=== PATIENT | female | born 1955 | race Caucasian/White ===

== ENCOUNTER 2020-06-13 13:24 | Outpatient (CLI) | payer OTHER, SELFPAY ==
[2020-06-13 13:50] LABS: Basophils Percent Auto 0.4 % (0.2-1.2); Eosinophils Absolute Auto 0.3 K/mm3 (0-0.3); Eosinophils Percent Auto 4.5 % (0-4.4); Hematocrit 41.7 % (37.0-47.0); Hemoglobin 13.5 g/dL (12.0-15.0); Immature Granulocyte Absolute 0.01 K/mm3 (0.00-0.031); Immature Granulocyte Percent A 0.1 % (0-0.5); Lymphocytes Absolute Auto 1.51 K/mm3 (0.9-3.2); Mean Corpuscular HGB Conc 32.4 g/dl (32-36); Mean Corpuscular Hemoglobin 29.9 pg (26-34); Mean Corpuscular Volume 92.5 fl (80-100); Mean Platelet Volume 11.6 fl (7.4-10.4); Monocytes Absolute Auto 0.4 K/mm3 (0.1-0.6); Monocytes Percent Auto 6.1 % (2.6-8.5); Neutrophils Absolute Auto 4.9 K/mm3 (1.3-6.7); Neutrophils Percent Auto 67.9 % (45.5-73.1); Platelet Count Result 199 k/mm3 (150-375); Red Blood Count 4.51 M/mm3 (4.2-5.4); Red Cell Distribution Width 13.8 % (11.5-14.5); White Blood Count 7.2 K/mm3 (4.5-10.0)
[2020-06-13 15:04] LABS: Iron 68 ug/dL (37-170)
[2020-06-13 15:14] LABS: Percent Iron Saturation 26 % (20-50)
== END 2020-06-13 13:25 | disposition home or self-care (01) ==
PROVIDERS: PCP Family Medicine; Visit Provider Internal Medicine Hematology & Oncology
DX: D50.9 Iron deficiency anemia, unspecified (principal)
CPT/HCPCS: 36415; 82728; 83540; 83550; 85025

== ENCOUNTER 2020-10-10 09:47 | Outpatient (NON) | payer MEDICARE, OTHER, SELFPAY ==
[2020-10-10 23:36] LABS: SARS-CoV-2 RNA PCR Positive
== END 2020-10-10 09:48 ==
PROVIDERS: PCP Family Medicine; Visit Provider Physician Assistant
DX: U07.1 COVID-19 (principal)
CPT/HCPCS: 87635; C9803; U0003

== ENCOUNTER 2021-01-07 12:52 | Emergency (ER) | payer OTHER, SELFPAY ==
[2021-01-07 13:12] VITALS: BP 145/56; PULSE 82; RESP 16; TEMP 37.3; O2SAT 99
--- NOTE | 2021-01-07 13:32 | ED.NAVMDI ---
HPI - Nausea/Vomiting/Diarrhea General Chief complaint: Nausea/Vomiting/Diarrhea Stated complaint: vomiting/diaherra/abd pain Time Seen by Provider: 01/07/21 13:14 Source: patient and RN notes reviewed Mode of arrival: ambulatory Limitations: no limitations History of Present Illness HPI Narrative: Patient presents today complaining of nausea, vomiting, and diarrhea with upper abdominal pain that started yesterday. States her last vomiting episode was last night, but she has not tried to eat anything since that time. She has been able to keep down half a bottle of water today so far. Denies any blood in the emesis. States her stools were dark in color and loose yesterday, but today she describes them as black and tarry. Her last episode was this morning prior to arrival. States her abdominal pain has been constant and she cannot get comfortable. She currently rates her abdominal pain 9/10 and has been taking ibuprofen without relief. History of type 2 diabetes, chronic kidney disease, anemia. She has been taking an iron supplement for the past 3-1/2 years and states it has never caused her to have black stools. Blood sugar this morning was 157. Patient recently finished a course of Macrobid for UTI. MD elicited complaint: nausea, vomiting, diarrhea and abdominal pain Related Data Home Medications Medication Instructions Recorded Confirmed ferrous sulfate 325 mg (65 mg 325 mg PO BID 10/26/19 01/01/21 iron) tablet ibuprofen 200 mg tablet 200 mg PO Q6H PRN 10/26/19 01/01/21 Allergies Allergy/AdvReac Type Severity Reaction Status Date / Time ciprofloxacin Allergy Unknown Unknown Verified 01/01/21 14:52 Penicillins Allergy Unknown Hives Verified 01/01/21 14:52 Review of Systems Review of Systems: Narrative: CONSTITUTIONAL: Denies body aches, fever, chills, or sweats.+ Fatigue EYES: Denies visual changes, redness, or discharge. ENT: Denies rhinorrhea, congestion, sore throat, or otalgia. CARDIOVASCULAR: Denies chest pain, palpitations, or edema. RESPIRATORY: Denies cough or dyspnea. GASTROINTESTINAL: + Nausea, vomiting, diarrhea, abdominal pain GENITOURINARY: Denies dysuria or hematuria. SKIN: Denies rash, itching, or wounds. MUSCULOSKELETAL: Denies back pain, joint pain, or myalgia. NEUROLOGIC: Denies headache, numbness, tingling, or weakness. PSYCH: Denies depression or anxiety. [facility] Past Medical History Medical History (Updated 01/07/21 @ 13:35 by Kati Lemus, [facility], ) Chronic thumb pain, bilateral CKD (chronic kidney disease), stage III Foot callus Incontinence of feces with fecal urgency Urinary incontinence Wellness examination Family History Family History Mother Diabetes mellitus Family history of primary malignant neoplasm of liver Father Family history of coronary artery disease Sibling Family history of malignant neoplasm of breast in first degree relative Social History Social History (Updated 01/01/21 @ 14:52 by Lorena Blanco) Smoking status: Never smoker Second hand tobacco smoke exposure: No Alcohol intake: never Substance use: never Substance use type: does not use Gender identity (if verbalized by the patient): Female Comments At time of signature, I have reviewed and agree with nursing past medical, surgical, social and family history unless otherwise noted. Please see nursing chart for further information. There is no relevant family history pertinent to the presenting complaint Exam Narrative: Exam Narrative: GENERAL: Well-appearing, well-nourished, and in no acute distress. HEAD: Normocephalic, atraumatic. EYES: EOMI. No redness or drainage. Conjunctivae normal. ENT: Mucous membranes pink and moist. NECK: Normal AROM. Supple. No lymphadenopathy. CHEST: No respiratory distress. Clear to auscultation. HEART: Regular rate and rhythm. No murmur appreciated. Normal peripheral pulses. ABDO
== END 2021-01-07 13:42 | disposition short-term general hospital (02) ==
PROVIDERS: Emergency Provider Nurse Practitioner; PCP Family Medicine
DX: R10.11 Right upper quadrant pain (principal); R11.2 Nausea with vomiting, unspecified; R19.7 Diarrhea, unspecified; I12.9 Hypertensive chronic kidney disease with stage 1 through stage 4 chronic kidney disease, or unspecified chronic kidney disease; E11.22 Type 2 diabetes mellitus with diabetic chronic kidney disease; N18.30 Chronic kidney disease, stage 3 unspecified; E78.00 Pure hypercholesterolemia, unspecified; K21.9 Gastro-esophageal reflux disease without esophagitis
CPT/HCPCS: 99212; G0463

== ENCOUNTER 2021-01-07 13:52 | Inpatient (IN) | payer OTHER, SELFPAY ==
[2021-01-07] VITALS (9 sets, daily range): BP systolic 133–156; BP diastolic 54–68; PULSE 88–110; RESP 20; TEMP 36.7–36.8; O2SAT 92–98; BMI 38.0
--- NOTE | ~2021-01-07 | US_ITS ---
EXAMINATION: US right upper quadrant DATE: 01/07/2021 15:38 INDICATION: Right upper quadrant abdominal pain. TECHNIQUE: Multiple grayscale and Doppler ultrasound images of the abdomen were obtained. COMPARISON: CT abdomen and pelvis 10/22/2017 FINDINGS: The visualized portions of the head and body of the pancreas are normal. The liver is aliya l without focal lesion. There is normal flow in main portal vein. The gallbladder is distended and co ntains gallstones. Gallbladder wall thickening is noted. There was a positive sonographic Al[place]a sign . The common duct is mildly dilated to 8 mm. IMPRESSION: 1. Acute cholecystitis. 2. Mildly dilated common duct. Reviewed, dictated and finalized at location A. [employer] POLICY ANALYST
[2021-01-07 14:18] LABS: Basophils Percent Auto 0.2 % (0.2-1.2); Hematocrit 45.9 % (37.0-47.0); Hemoglobin 15.1 g/dL (12.0-15.0); Immature Granulocyte Absolute 0.08 K/mm3 (0.00-0.031); Immature Granulocyte Percent A 0.4 % (0-0.5); Lymphocytes Absolute Auto 0.74 K/mm3 (0.9-3.2); Lymphocytes Percent Auto 4.1 % (18.3-44.2); Mean Corpuscular HGB Conc 32.9 g/dl (32-36); Mean Corpuscular Hemoglobin 29.7 pg (26-34); Mean Corpuscular Volume 90.4 fl (80-100); Mean Platelet Volume 11.3 fl (7.4-10.4); Monocytes Absolute Auto 1.1 K/mm3 (0.1-0.6); Monocytes Percent Auto 5.9 % (2.6-8.5); Neutrophils Absolute Auto 16.3 K/mm3 (1.3-6.7); Neutrophils Percent Auto 89.4 % (45.5-73.1); Platelet Count Result 209 k/mm3 (150-375); Red Blood Count 5.08 M/mm3 (4.2-5.4); Red Cell Distribution Width 14.2 % (11.5-14.5); White Blood Count 18.2 K/mm3 (4.5-10.0)
[2021-01-07 14:28] LABS: Partial Thromboplastin Time 34.4 SECONDS (22.3-36.8); Prothrombin Time 13.7 Seconds (11.1-14.7)
[2021-01-07 14:29] LABS: Alanine Aminotransferase 18 U/L (4-35); Albumin Level 4.3 g/dL (3.5-5.1); Alkaline Phosphatase 116 U/L (38-126); Anion Gap 10 mmol/L (8-16); Aspartate Amino Transferase 24 U/L (14-36); Bilirubin,Total 1.8 mg/dL (0.2-1.3); Blood Urea Nitrogen 17 mg/dL (7-17); Calcium 10.2 mg/dL (8.4-10.2); Carbon Dioxide 22 mmol/L (22-30); Chloride 105 mmol/L (98-107); Estimated CRCL calculation 77 ml/min; Estimated Glomerular Filt Rate > 60; Glucose 242 mg/dL (65-105); Potassium 4.2 mmol/L (3.4-5.0); Sodium 137 mmol/L (137-145)
[2021-01-07 14:31] LABS: Add Urine Microscopic? YES; Appearance Urine Clear (Clear); Bacteria Urine Trace /hpf; Bilirubin Urine Negative (Negative); Blood Urine 2+ (Negative); Color Urine Yellow (Yellow); Glucose Urine UA 1+ mg/dL (Negative); Ketones Urine Trace mg/dL (Negative); Leukocyte Esterase Ur Negative LEU/UL (Negative); Mucus Urine Heavy /lpf; Nitrate Urine Negative (Negative); Protein Urine 3+ mg/dL (Negative); Specific Grav Ur 1.026 (1.001-1.035); Squamous Epithelial Cell Urine Moderate /hpf (Few); Urobilinogen Urine Negative mg/dL (<2.0); WBC Urine 0-3 /hpf
--- NOTE | 2021-01-07 15:13 | ED.ABDPAIN ---
HPI - Abdominal Pain General Chief Complaint: Abdominal Pain Stated Complaint: bloody stool Time Seen by Provider: 01/07/21 14:54 Source: patient Limitations: no limitations History of Present Illness HPI narrative: 65-year-old female History of diabetes Complains of nausea vomiting and upper abdominal pain that started yesterday She has not had any diarrhea but thought that her stools might have been tarry appearing She went to urgent care and based on that they sent her over here No fever and blood sugars have been okay No urinary symptoms History of C-sections but no other abdominal operations Related Data Home Medications Medication Instructions Recorded Confirmed ferrous sulfate 325 mg (65 mg 325 mg PO BID 10/26/19 01/01/21 iron) tablet ibuprofen 200 mg tablet 200 mg PO Q6H PRN 10/26/19 01/01/21 Allergies Allergy/AdvReac Type Severity Reaction Status Date / Time ciprofloxacin Allergy Unknown Unknown Verified 01/07/21 14:03 Penicillins Allergy Unknown Hives Verified 01/07/21 14:03 Review of Systems Review of Systems: All systems reviewed & are unremarkable except as noted in HPI and below Constitutional: Constitutional: Denies chills, Denies fatigue, Denies fever(s), Denies headache(s) and Denies weakness Eyes: Eyes: Reports no additional eye complaints and Denies change in vision ENT: Denies headache(s), Denies epistaxis, Denies nasal congestion and Denies sore throat Cardiovascular: Cardiovascular: Denies chest pain, Denies leg edema, Denies palpitations and Denies dyspnea Respiratory: Respiratory: Denies cough, Denies dyspnea and Denies wheezing Gastrointestinal: Gastrointestinal: Reports abdominal pain, Denies bloating, Denies constipation, Denies diarrhea, Reports nausea and Reports vomiting Genitourinary: Genitourinary: Denies hematuria, Denies urinary frequency and Denies dysuria Musculoskeletal: Musculoskeletal: Denies deformity, Denies arthralgias, Denies joint swelling, Denies muscle weakness and Denies numbness Integumentary/Breasts: Skin/Breast: Denies rash and Denies wounds Neurologic: Denies headache(s), Denies focal weakness, Denies numbness and Denies weakness Psychiatric: Psychiatric: Reports no additional psychiatric complaints Endocrine: Endocrine: Denies fatigue and Denies palpitations Hematologic/Lymphatic: Hematologic/Lymphatic: Denies easy bleeding and Denies easy bruising Allergic/Immunologic: Allergic/Immunologic: Denies wheezing PMFSH Past Medical History Medical History (Updated 01/07/21 @ 16:56 by Adryan Winslow MD) Chronic thumb pain, bilateral CKD (chronic kidney disease), stage III Foot callus Incontinence of feces with fecal urgency Urinary incontinence Wellness examination Family History Family History Mother Diabetes mellitus Family history of primary malignant neoplasm of liver Father Family history of coronary artery disease Sibling Family history of malignant neoplasm of breast in first degree relative Social History Social History (Updated 01/01/21 @ 14:52 by Lorena Blanco) Smoking status: Never smoker Second hand tobacco smoke exposure: No Alcohol intake: never Substance use: never Substance use type: does not use Gender identity (if verbalized by the patient): Female Exam Const: General: well developed, alert and awake Nutritional Appearance: well nourished and obese Orientation/consciousness: patient oriented x3 (alert) Limitations: no limitations HENMT: Head: normocephalic and atraumatic Ears: external ears normal General nose exam: No nasal discharge present and no epistaxis Face and sinus: face symmetric Eyes: Conjunctivae: conjunctivae normal Sclera: sclerae normal EOM: EOMs intact bilaterally Neck: Neck: normal visual inspection, supple and no JVD Chest: Chest palpation & inspection: deferred Resp: Effort & Inspection: aliya
[2021-01-07 15:32] LABS: Lipase 34 U/L (23-300)
[2021-01-07] MEDS: LACTATED RINGERS 1,000 ML 150 ML IV CONT (16:15)
[2021-01-07] MEDS: METOCLOPRAMIDE HCL INJ 10 MG/2 ML VIAL IV PUSH (16:15)
[2021-01-07] MEDS: metroNIDAZOLE 500 MG/ISO 100ML 500 MG/100 ML BAG 100 MG IVPB ×2 (16:16→22:50)
--- NOTE | 2021-01-07 18:40 | ADMGEN ---
This patient, Yoana Franco, was admitted to 3 Med Surg Room 319-01 @ 1840. Patient/family oriented to hospital policies and general routines including ID bracelet, bed and alarms, visiting hours, pain management, procedures, bathroom and other care routines, personal items, smoking policy, room service/diet, and visiting hours. Information on how to activate the Rapid Response Team has been discussed. Patient/Family are encouraged to report perceived risks to care and to ask questions if they do not understand what they are told or what they should do.
[2021-01-07] MEDS: LACTATED RINGERS 1,000 ML 125 ML IV CONT (20:57)
[2021-01-07] MEDS: FAMOTIDINE 20 MG/2 ML VIAL IV PUSH (21:08)
[2021-01-07 22:20] LABS: Hemoglobin A1C 7.2 % (<5.7)
[2021-01-07 22:21] LABS: Glucose Point of Care 207 (65-105)
[2021-01-07] MEDS: INSULIN GLARGINE (*BKC) 100 UNITS/ML 14 UNITS SUB-Q (22:46)
[2021-01-08] VITALS (19 sets, daily range): BP systolic 144–161; BP diastolic 52–69; PULSE 75–100; RESP 13–18; TEMP 36.2–37.1; O2SAT 88–96
--- NOTE | 2021-01-08 00:53 | PM.IMHP ---
H&P: HPI History of Present Illness Date/Time: 01/08/21 00:53 Chief Complaint: RUQ abd pain for 1 day Narrative: This is a pleasant 65 year old Diabetic female who presented to the hospital yesterday with a complaint of severe RUQ abdominal pain of 1 day duration. Associated symptoms included nausea and vomiting. She rossi no't believe that she had any fevers or chills. Her aunt of an inflammed gallbladder around her age so she was worried and came to the hospital for evaluation. She also reported dark stools. Rectal exam was performed in the ER and was negative for occult blood. RUQ ultrasound was obtained which demonstrated acute cholecystitis. General Surgery was consulted by ER provider and asked that we admit the patient to the hospital for them. The patient denies any other symptoms such as chest pain, shortness of breath, cough, dysuria, hematuria, or rectal bleeding. The patient has been treated with IV fluids and IV antibiotics. no other complaints. Review of Systems Review of Systems: All systems reviewed & are unremarkable except as noted in HPI and below PMFSH Past Medical History Medical History Chronic thumb pain, bilateral CKD (chronic kidney disease), stage III Diabetes mellitus Foot callus Incontinence of feces with fecal urgency Urinary incontinence Wellness examination Surgical History Surgical History (Updated 01/08/21 @ 01:05 by Javier Choi MD) History of section, classical Family History Family History Mother Family history of primary malignant neoplasm of liver Diabetes mellitus Father Family history of coronary artery disease Malignant neoplasm of prostate Sibling Family history of malignant neoplasm of breast in first degree relative Social History Social History Smoking status: Never smoker Second hand tobacco smoke exposure: No Alcohol intake: never Substance use: never Substance use type: does not use Gender identity (if verbalized by the patient): Female Spiritual care concerns: No Meds Home Medications and Allergies Home Medications Medication Instructions Recorded Confirmed Type ferrous sulfate 325 mg (65 mg 325 mg PO HS 10/26/19 01/07/21 History iron) tablet dicyclomine 10 mg capsule 10 mg PO BID #30 cap 11/05/19 01/07/21 Rx blood sugar diagnostic #300 each 12/30/19 01/07/21 Rx lancets 28 gauge #300 each 12/30/19 01/07/21 Rx allopurinol 300 mg tablet 300 mg PO DAILY #90 tablet 11/21/20 01/07/21 Rx amlodipine 10 mg tablet 10 mg PO DAILY #90 tablet 11/21/20 01/07/21 Rx losartan 100 mg tablet 100 mg PO DAILY #90 tablet 11/21/20 01/07/21 Rx metoprolol succinate 50 mg 50 mg PO DAILY #90 tablet 11/21/20 01/07/21 Rx tablet,extended release 24 hr omeprazole 20 mg capsule,delayed 20 mg PO DAILY #90 cap 11/21/20 01/07/21 Rx release pen needle, diabetic 31 gauge x #100 each 11/21/20 01/07/21 Rx 5/16 sertraline 50 mg tablet 50 mg PO DAILY #90 tablet 11/21/20 01/07/21 Rx sitagliptin 100 mg tablet 100 mg PO DAILY #90 tablet 11/21/20 01/07/21 Rx valacyclovir 1 gram tablet 2,000 mg PO Q12H PRN #28 tablet 11/21/20 01/07/21 Rx metformin 500 mg tablet 500 mg PO BID #180 tablet 12/11/20 01/07/21 Rx ascorbic acid (vitamin C) 100 mg PO DAILY 01/07/21 01/07/21 History ferrous sulfate [Iron (ferrous 650 mg PO DAILY 01/07/21 01/07/21 History sulfate)] glucosamine sulfate [Glucosamine] 500 mg PO BID 01/07/21 01/07/21 History insulin glargine [Lantus Solostar 28 unit SUB-Q DAILY 01/07/21 01/07/21 History U-100 Insulin] simvastatin 20 mg PO HS 01/07/21 01/07/21 History vitamin B complex [B 1 tablet PO DAILY 01/07/21 01/07/21 History Complex-Vitamin B12] Allergies Allergy/AdvReac Type Severity Reaction Status Date / Time ciprofloxacin Allergy Unknown Unknown Verified 01/07/21 19:2
[2021-01-08] MEDS: metroNIDAZOLE 500 MG/ISO 100ML 500 MG/100 ML BAG 100 MG IVPB ×3 (05:52→20:45)
[2021-01-08] MEDS: INSULIN ASPART (*BKC) 100 UNITS/ML SUB-Q ×3 (05:55→17:20)
[2021-01-08 06:10] LABS: Basophils Percent Auto 0.2 % (0.2-1.2); Eosinophils Absolute Auto 0.3 K/mm3 (0-0.3); Eosinophils Percent Auto 1.7 % (0-4.4); Hematocrit 40.9 % (37.0-47.0); Hemoglobin 13.7 g/dL (12.0-15.0); Immature Granulocyte Absolute 0.13 K/mm3 (0.00-0.031); Immature Granulocyte Percent A 0.7 % (0-0.5); Lymphocytes Absolute Auto 1.08 K/mm3 (0.9-3.2); Lymphocytes Percent Auto 5.8 % (18.3-44.2); Mean Corpuscular HGB Conc 33.5 g/dl (32-36); Mean Corpuscular Hemoglobin 30.2 pg (26-34); Mean Corpuscular Volume 90.1 fl (80-100); Mean Platelet Volume 11.7 fl (7.4-10.4); Monocytes Absolute Auto 1.5 K/mm3 (0.1-0.6); Monocytes Percent Auto 7.8 % (2.6-8.5); Neutrophils Absolute Auto 15.7 K/mm3 (1.3-6.7); Neutrophils Percent Auto 83.8 % (45.5-73.1); Platelet Count Result 174 k/mm3 (150-375); Red Blood Count 4.54 M/mm3 (4.2-5.4); Red Cell Distribution Width 14.3 % (11.5-14.5); White Blood Count 18.8 K/mm3 (4.5-10.0)
[2021-01-08 06:16] LABS: Glucose Point of Care 188 (65-105)
[2021-01-08 06:18] LABS: Alanine Aminotransferase 14 U/L (4-35); Albumin Level 3.5 g/dL (3.5-5.1); Alkaline Phosphatase 92 U/L (38-126); Anion Gap 5 mmol/L (8-16); Aspartate Amino Transferase 17 U/L (14-36); Bilirubin,Total 1.4 mg/dL (0.2-1.3); Blood Urea Nitrogen 15 mg/dL (7-17); Calcium 9.6 mg/dL (8.4-10.2); Carbon Dioxide 27 mmol/L (22-30); Chloride 104 mmol/L (98-107); Estimated CRCL calculation 85 ml/min; Estimated Glomerular Filt Rate > 60; Glucose 179 mg/dL (65-105); Lipase 19 U/L (23-300); Potassium 3.9 mmol/L (3.4-5.0); Sodium 136 mmol/L (137-145)
[2021-01-08 08:09] LABS: Glucose Point of Care 152 (65-105)
[2021-01-08] MEDS: PANTOPRAZOLE SODIUM IV 40 MG VIAL IV PUSH (08:51)
[2021-01-08] MEDS: MORPHINE SULFATE (*CRX) 2 MG/ML INJ IV PUSH ×2 (08:51→22:38)
[2021-01-08] MEDS: ONDANSETRON INJ 4 MG/2 ML VIAL IV PUSH (08:55)
--- NOTE | 2021-01-08 10:03 | PM.CNGS ---
Assessment and Plan Assessment and plan (1) Acute cholecystitis: Code(s): K81.0 - Acute cholecystitis Status: Acute Assessment and Plan: cont IV abx, NPO, d/w pt in detail and decision to proceed c urgent cholecystectomy (2) Sepsis: Qualifiers: Sepsis type: sepsis due to unspecified organism Sepsis acute organ dysfunction status: without acute organ dysfunction Qualified Code(s): A41.9 - Sepsis, unspecified organism Code(s): A41.9 - Sepsis, unspecified organism Status: Acute Assessment and Plan: secondary to above, IV abx, OR for cholecystectomy (3) Diabetes mellitus: Qualifiers: Diabetes mellitus type: type 2 Diabetes mellitus intermodal dispatcher insulin use: with intermodal dispatcher use Diabetes mellitus complication status: without complication Qualified Code(s): E11.9 - Type 2 diabetes mellitus without complications; Z79.4 - [facility] (current) use of insulin Code(s): E11.9 - Type 2 diabetes mellitus without complications Status: Chronic Assessment and Plan: tight BS control History of Present Illness Consult details Consult date: 01/08/21 Reason for consult: abdominal pain Requesting physician: Javier Choi MD Narrative: Pt is a 65 y/o F presenting to ED c/o severe epigastric/RUQ abd pain since Friday. Pt reports poor appetite, N/V, and bloating assoc c pain. Pt reports pain is sharp and constant c radiation to chest, back. Pt denies any previous episodes. Pt reports strong FH of biliary dz. Review of Systems Constitutional: Constitutional: Reports anorexia, Denies chills, Reports fatigue, Denies fever(s), Denies increased appetite, Reports lethargy, Reports malaise, Reports poor appetite, Reports weakness, Denies weight gain and Denies weight loss Eyes: Eyes: Reports no additional eye complaints ENT: Reports system reviewed and no additional complaints, except as documented Cardiovascular: Cardiovascular: Reports no additional cardiovascular complaints Respiratory: Respiratory: Reports no additional respiratory complaints Gastrointestinal: Gastrointestinal: Reports as per HPI Genitourinary: Genitourinary: Reports no additional female genitourinary complaints Musculoskeletal: Musculoskeletal: Reports no additional musculoskeletal complaints Integumentary/Breasts: Skin/Breast: Reports system reviewed and no additional complaints, except as docu Neurologic: Reports system reviewed and no additional complaints, except as documented Psychiatric: Psychiatric: Reports no additional psychiatric complaints Endocrine: Endocrine: Reports no additional endocrine complaints Hematologic/Lymphatic: Hematologic/Lymphatic: Reports no additional hematologic/lymphatic complaints Allergic/Immunologic: Allergic/Immunologic: Reports no additional allergic/immunologic complaints PMFSH Past Medical History Medical History Chronic thumb pain, bilateral CKD (chronic kidney disease), stage III Diabetes mellitus Foot callus Incontinence of feces with fecal urgency Urinary incontinence Wellness examination Surgical History Surgical History History of section, classical Family History Family History Mother Family history of primary malignant neoplasm of liver Diabetes mellitus Father Family history of coronary artery disease Malignant neoplasm of prostate Sibling Family history of malignant neoplasm of breast in first degree relative Social History Social History Smoking status: Never smoker Second hand tobacco smoke exposure: No Alcohol intake: never Substance use: never Substance use type: does not use Gender identity (if verbalized by the patient): Female Spiritual care concerns: No Meds Home Medicati
--- NOTE | 2021-01-08 10:09 | WPDHPUPDATE1 ---
History and Physical Update Update Date/Time: 01/08/21 10:09 History and Physical has been reviewed, including an updated exam of the patient. There are NO changes in the patient's condition. Risks, benefits, and alternatives have been discussed and questions answered. Patient agrees to proceed with procedure.
--- NOTE | 2021-01-08 10:20 | PC.NURSE ---
Patient to surgery per bed.
--- NOTE | 2021-01-08 10:50 | WPDANESEPPF ---
Anes - Initial Pre Proc Eval Procedure: Operation Date: 01/08/21 15:15 Proposed Procedures p Laparoscopic Cholecystectomy - Suly Burk MD Date/Time: 01/08/21 10:50 Surgeon: Moses Nava PA-C Pre Op Diagnosis: Acute cholecystitis Patient Data Age: 65 Gender: F Height: 1.68 m Weight: 106.9 kg Last Vital Signs Temp 36.4 C 01/08/21 06:00 Pulse 75 01/08/21 06:00 Resp 18 01/08/21 06:00 BP 148/53 H 01/08/21 06:00 Pulse Ox 93 01/08/21 06:00 Allergies Allergy/AdvReac Type Severity Reaction Status Date / Time ciprofloxacin Allergy Intermediate Unknown Verified 01/08/21 10:36 Penicillins Allergy Intermediate Hives Verified 01/08/21 10:36 Home Medications Medication Instructions Recorded Confirmed Type ferrous sulfate 325 mg (65 mg 325 mg PO HS 10/26/19 01/07/21 History iron) tablet dicyclomine 10 mg capsule 10 mg PO BID #30 cap 11/05/19 01/07/21 Rx blood sugar diagnostic #300 each 12/30/19 01/07/21 Rx lancets 28 gauge #300 each 12/30/19 01/07/21 Rx allopurinol 300 mg tablet 300 mg PO DAILY #90 tablet 11/21/20 01/07/21 Rx amlodipine 10 mg tablet 10 mg PO DAILY #90 tablet 11/21/20 01/07/21 Rx losartan 100 mg tablet 100 mg PO DAILY #90 tablet 11/21/20 01/07/21 Rx metoprolol succinate 50 mg 50 mg PO DAILY #90 tablet 11/21/20 01/07/21 Rx tablet,extended release 24 hr omeprazole 20 mg capsule,delayed 20 mg PO DAILY #90 cap 11/21/20 01/07/21 Rx release pen needle, diabetic 31 gauge x #100 each 11/21/20 01/07/21 Rx 5/16 sertraline 50 mg tablet 50 mg PO DAILY #90 tablet 11/21/20 01/07/21 Rx sitagliptin 100 mg tablet 100 mg PO DAILY #90 tablet 11/21/20 01/07/21 Rx valacyclovir 1 gram tablet 2,000 mg PO Q12H PRN #28 tablet 11/21/20 01/07/21 Rx metformin 500 mg tablet 500 mg PO BID #180 tablet 12/11/20 01/07/21 Rx ascorbic acid (vitamin C) 100 mg PO DAILY 01/07/21 01/07/21 History ferrous sulfate [Iron (ferrous 650 mg PO DAILY 01/07/21 01/07/21 History sulfate)] glucosamine sulfate [Glucosamine] 500 mg PO BID 01/07/21 01/07/21 History insulin glargine [Lantus Solostar 28 unit SUB-Q DAILY 01/07/21 01/07/21 History U-100 Insulin] simvastatin 20 mg PO HS 01/07/21 01/07/21 History vitamin B complex [B 1 tablet PO DAILY 01/07/21 01/07/21 History Complex-Vitamin B12] Laboratory Tests 01/07/21 01/07/21 01/07/21 14:06 14:06 14:06 WBC 18.2 K/mm3 H K/mm3 (4.5-10.0) RBC 5.08 M/mm3 M/mm3 (4.2-5.4) Hgb 15.1 g/dL H g/dL (12.0-15.0) Hct 45.9 % % (37.0-47.0) MCV 90.4 fl fl (80-100) MCH 29.7 pg pg (26-34) MCHC 32.9 g/dl g/dl (32-36) RDW 14.2 % % (11.5-14.5) Plt Count 209 k/mm3 k/mm3 (150-375) MPV 11.3 fl H fl (7.4-10.4) Immature Gran % (Auto) 0.4 % % (0-0.5) Neut % (Auto) 89.4 % H % (45.5-73.1) Lymph % (Auto) 4.1 % L % (18.3-44.2) [place] % (Auto) 5.9 % % (2.6-8.5) Eos % (Auto) 0.0 % % (0-4.4) Baso % (Auto) 0.2 % % (0.2-1.2) Lymph # (Auto) 0.74 K/mm3 L K/mm3 (0.9-3.2) [place] # (Auto) 1.1 K/mm3 H K/mm3 (0.1-0.6) Eos # (Auto) 0.0 K/mm3 K/mm3 (0-0.3) Baso # (Auto) 0.0 K/mm3 K/mm3 (0.0-0.1) Abs Immat Gran (auto) 0.08 K/mm3 H K/mm3 (0.00-0.031) Absolute Neuts (auto) 16.3 K/mm3 H K/mm3 (1.3-6.7) Absolute Nucleated RBC 0.0 K/mm3 K/mm3 (0.0-0.012) Nucleated RBC % 0.0 % % (0.0-0.2) PT 13.7 Seconds Seconds (11.1-14.7) INR 1.0 APTT 34.4 SECONDS SECONDS (22.3-36.8) Sodium 137 mmol/L mmol/L (137-145) Potassium 4.2 mmol/L mmol/L (3.4-5.0) Chloride 105 mmol/L mmol/L (98-107) Carbon Dioxide 22 mmol/L mmol/L (22-30) Anion Gap 10 mmol/L mmol/L (8-16) BUN 17 mg/dL mg/dL (7-17) Creatinine 0.80 mg/dL mg/dL (0.7-
[2021-01-08] MEDS: fentaNYL CITRATE INJ (*CRX) 100 MCG/2 ML VIAL 50 MCG IV PUSH ×2 (10:54→11:07)
[2021-01-08] MEDS: SCOPOLAMINE 1.5 MG PATCH TRANSDERM (10:55)
[2021-01-08] MEDS: LACTATED RINGERS 1,000 ML 30 ML IV CONT ×2 (10:59→13:01)
[2021-01-08 11:18] LABS: Glucose Point of Care 147 (65-105)
[2021-01-08] MEDS: ceFAZolin SODIUM 1 GM VIAL 2 GM IV PUSH (11:55)
[2021-01-08] MEDS: BUPIVACAINE/EPINEPHRINE 0.5% 30 ML VIAL INFILTRATE (12:10)
--- NOTE | 2021-01-08 12:54 | PM.PROC ---
Procedure Note - Detailed Date of procedure: 01/08/21 Pre-op diagnosis: Acute cholecystitis Post-op diagnosis: other (acute supprative cholecystitis c hydrops, cholelithiasis) Procedure performed: laparoscopic cholecystectomy Description of procedure: The patient was taken to the operating room placed in the supine position. After adequate induction of general anesthesia, the patient was prepped and draped in normal sterile fashion. A time-out was then performed to verify the patient's identity as well as the procedure being performed. I then made a 5 mm incision in the infraumbilical region. Through this, a Veress needle was placed into the peritoneal cavity and CO2 gas was then insufflated. After adequate pneumoperitoneum was achieved, the Veress needle was removed and a 5 mm trocar was placed through this incision. I then placed the laparoscope through this trocar site and under direct visualization placed a further 12 mm subxiphoid port as well as 2 additional 5 mm ports in the right upper abdomen. The gallbladder was then identified and was noted to be very inflamed and distended. There was a large amount of omental adhesions that was taken down both bluntly and with the electrocautery. Given the massive amount of inflammation and distention, I decompressed the GB c an ovarian needle. It was noted at this point the patient had both purulent drainage and hydrops cholecystitis. After decompression, I was able to place a grasper at the dome of the gallbladder and this was retracted anterior and cephalad up over the liver. A 2nd retractor was then placed at the infundibulum and retracted laterally, this allowed visualization of the triangle of Calot. I then was able to visualize the cystic duct in its entirety from its proximal insertion into the gallbladder, to its distal junction with the common hepatic/common bile duct junction. The dissection in this area was difficult as the tissue was very friable. I did contemplate a cholangiogram, however, the tissue around the ductal structures was friable and inflamed making cannulating the duct impossible. At this point, I carefully skeletonized the proximal cystic duct with the [place] dissector. I then clipped and transected the proximal cystic duct. Next I visualized the cystic artery. Again the artery was skeletonized, clipped, and transected. I then used the Bovie cautery to take down the peritoneal attachments of the gallbladder off the liver bed. This was quite difficult, given the friability and inflammation. Once the gallbladder specimen was completely detached, an endo-pouch was placed through the 12 mm port site. I then placed the gallbladder specimen into the Endo pouch and removed the endo-pouch from the 12 mm port site. Of note, I did have to enlarge the 12 mm port site to extract the specimen. The specimen will now be sent to pathology for further review. I then copiously irrigated the right upper quadrant. Hemostasis was noted in the liver bed, the clips were noted to be in good position on both the cystic duct stump and the cystic artery stump. No other pathology was noted in the right upper quadrant. Given the amount of inflammation, I did place some hemostatic powder in the gallbladder fossa. I then moved the laparoscope to the subxiphoid port. No iatrogenic injury or other pathology was noted in the lower abdomen. At this point, the abdomen was desufflated and all ports removed. The fascia of the 12 mm subxiphoid port was closed with a 0 Vicryl figure of 8 suture. All port sites were then closed with 4.O Monocryl subcuticular sutures. Dermabond was placed on each incision. The patient tolerated the procedure well, was extubated in the operating room postoperative and will be transferred to the recovery room in stable condition. Implants: none Anesthesia: GETA Surgeon: Suly Burk MD Estimated blood loss (mL): 50 Drains: No Packing: No Pathology: yes Complications: No immediat
[2021-01-08 13:27] LABS: Glucose Point of Care 206 (65-105)
[2021-01-08] MEDS: fentaNYL CITRATE INJ (*CRX) 100 MCG/2 ML VIAL 25 MCG IV PUSH ×2 (13:40→14:04)
--- NOTE | 2021-01-08 14:57 | PC.NURSE ---
Patient returned from surgery per bed.
[2021-01-08 15:18] LABS: Glucose Point of Care 243 (65-105)
--- NOTE | 2021-01-08 15:54 | PC.NURSE ---
Patient gave permission for daughter to have information. Daughters name is Marquita and phone number is [phone].
--- NOTE | 2021-01-08 16:23 | P.PNIM_ITS ---
Progress Note: A&P Assessment and Plan (1) Acute cholecystitis: Code(s): K81.0 - Acute cholecystitis Status: Acute Assessment and Plan: Dr. Burk (general surgery) consulted and appreciate recommendations; patient underwent lap tigist today without immediate complications per op note; acute suppurative and hydrops cholecystitis per note. * Will continue IV antibiotics. * Continue IV fluids; will reduce rate to 75 mL/hr * Continue pain control with IV pain meds prn tonight * diet per General Surgery * Continue with general surgery recommendations. * Monitor (2) Sepsis: Qualifiers: Sepsis type: sepsis due to unspecified organism Sepsis acute organ dysfunction status: without acute organ dysfunction Qualified Code(s): A41.9 - Sepsis, unspecified organism Code(s): A41.9 - Sepsis, unspecified organism Status: Acute Assessment and Plan: SIRS criteria met with tachycardia and leukocytosis; gallbladder suspected source. * Continue IV antibiotics (day 2) * Monitor vital signs and urine output closely. * Monitor acid-base status. (3) Diabetes mellitus: Qualifiers: Diabetes mellitus type: type 2 Diabetes mellitus penitentiary insulin use: with penitentiary use Diabetes mellitus complication status: without complication Qualified Code(s): E11.9 - Type 2 diabetes mellitus without complications; Z79.4 - [facility] (current) use of insulin Code(s): E11.9 - Type 2 diabetes mellitus without complications Status: Chronic Assessment and Plan: BGL [id number] 200s today. A1c 7.2 this stay * Accu-Cheks, sliding scale insulin coverage, hypoglycemia protocol, diabetic diet once advanced per General Surgery * Resume home oral hypoglycemic agents when the patient is eating again. * Monitor (4) CKD (chronic kidney disease), stage III: Qualifiers: Chronic kidney disease stage 3 subtype: unspecified whether 3a or 3b Qualified Code(s): N18.30 - Chronic kidney disease, stage 3 unspecified Code(s): N18.3 - Chronic kidney disease, stage 3 (moderate) Status: Chronic Assessment and Plan: Cr 0.70, Stable. * Monitor renal function. * Avoid nephrotoxin agents. * Renally dose medications. (5) Chronic GERD: Code(s): K21.9 - Gastro-esophageal reflux disease without esophagitis Status: Chronic Assessment and Plan: No acute issues * Protonix IV daily for now. Resume home PPI equivalent once tolerating diet (6) Essential hypertension: Code(s): I10 - Essential (primary) hypertension Status: Chronic Assessment and Plan: BP 150s sys. Elevated during this stay likely 2/2 pain * Monitor blood pressure. * IV hydralazine with parameters as ordered. * Resume home metoprolol and losartan when the patient is eating again. (7) Hyperlipidemia: Qualifiers: Hyperlipidemia type: unspecified Qualified Code(s): E78.5 - Hyperlipidemia, unspecified Code(s): E78.5 - Hyperlipidemia, unspecified Status: Chronic Assessment and Plan: Resume simvastatin when possible. (8) MARTÍN (obstructive sleep apnea): Code(s): G47.33 - Obstructive sleep apnea (adult) (pediatric) Status: Chronic Assessment and Plan: * Continue home CPAP.
--- NOTE | 2021-01-08 16:23 | PM.IMPN ---
Progress Note: A&P Assessment and Plan (1) Acute cholecystitis: Code(s): K81.0 - Acute cholecystitis Status: Acute Assessment and Plan: Dr. Burk (general surgery) consulted and appreciate recommendations; patient underwent lap tigist today without immediate complications per op note; acute suppurative and hydrops cholecystitis per note. Will continue IV antibiotics. Continue IV fluids; will reduce rate to 75 mL/hr Continue pain control with IV pain meds prn tonight diet per General Surgery Continue with general surgery recommendations. Monitor (2) Sepsis: Qualifiers: Sepsis type: sepsis due to unspecified organism Sepsis acute organ dysfunction status: without acute organ dysfunction Qualified Code(s): A41.9 - Sepsis, unspecified organism Code(s): A41.9 - Sepsis, unspecified organism Status: Acute Assessment and Plan: SIRS criteria met with tachycardia and leukocytosis; gallbladder suspected source. Continue IV antibiotics (day 2) Monitor vital signs and urine output closely. Monitor acid-base status. (3) Diabetes mellitus: Qualifiers: Diabetes mellitus type: type 2 Diabetes mellitus halfway insulin use: with director long term care use Diabetes mellitus complication status: without complication Qualified Code(s): E11.9 - Type 2 diabetes mellitus without complications; Z79.4 - halfway (current) use of insulin Code(s): E11.9 - Type 2 diabetes mellitus without complications Status: Chronic Assessment and Plan: BGL [id number] 200s today. A1c 7.2 this stay Accu-Cheks, sliding scale insulin coverage, hypoglycemia protocol, diabetic diet once advanced per General Surgery Resume home oral hypoglycemic agents when the patient is eating again. Monitor (4) CKD (chronic kidney disease), stage III: Qualifiers: Chronic kidney disease stage 3 subtype: unspecified whether 3a or 3b Qualified Code(s): N18.30 - Chronic kidney disease, stage 3 unspecified Code(s): N18.3 - Chronic kidney disease, stage 3 (moderate) Status: Chronic Assessment and Plan: Cr 0.70, Stable. Monitor renal function. Avoid nephrotoxin agents. Renally dose medications. (5) Chronic GERD: Code(s): K21.9 - Gastro-esophageal reflux disease without esophagitis Status: Chronic Assessment and Plan: No acute issues Protonix IV daily for now. Resume home PPI equivalent once tolerating diet (6) Essential hypertension: Code(s): I10 - Essential (primary) hypertension Status: Chronic Assessment and Plan: BP 150s sys. Elevated during this stay likely 2/2 pain Monitor blood pressure. IV hydralazine with parameters as ordered. Resume home metoprolol and losartan when the patient is eating again. (7) Hyperlipidemia: Qualifiers: Hyperlipidemia type: unspecified Qualified Code(s): E78.5 - Hyperlipidemia, unspecified Code(s): E78.5 - Hyperlipidemia, unspecified Status: Chronic Assessment and Plan: Resume simvastatin when possible. (8) MARTÍN (obstructive sleep apnea): Code(s): G47.33 - Obstructive sleep apnea (adult) (pediatric) Status: Chronic Assessment and Plan: Continue home CPAP. Subjective Date/time seen: 01/08/21 16:23 Interval history: Patient is a 65 year old Diabetic female with history of CKD who is seen in follow up for acute cholecystitis s/p lap cholecystectomy per Dr. Burk today, as well as, sepsis with cholecystitis as suspected source. Patient has just recently returned to the floor from surgery and states she has no major medical complaints;
[2021-01-08] MEDS: INSULIN GLARGINE (*BKC) 100 UNITS/ML 14 UNITS SUB-Q (17:19)
[2021-01-08 18:23] LABS: Glucose Point of Care 234 (65-105)
[2021-01-08] MEDS: LACTATED RINGERS 1,000 ML 75 ML IV CONT (18:26)
[2021-01-09] VITALS (10 sets, daily range): BP systolic 120–144; BP diastolic 54–76; PULSE 84–112; RESP 16–24; TEMP 36.3–37.2; O2SAT 90–98
[2021-01-09 00:06] LABS: Glucose Point of Care 230 (65-105)
[2021-01-09] MEDS: metroNIDAZOLE 500 MG/ISO 100ML 500 MG/100 ML BAG 100 MG IVPB ×4 (02:25→20:01)
[2021-01-09] MEDS: INSULIN ASPART (*BKC) 100 UNITS/ML SUB-Q ×3 (02:27→17:26)
[2021-01-09 06:24] LABS: Basophils Percent Auto 0.1 % (0.2-1.2); Hematocrit 41.1 % (37.0-47.0); Hemoglobin 13.4 g/dL (12.0-15.0); Immature Granulocyte Absolute 0.09 K/mm3 (0.00-0.031); Immature Granulocyte Percent A 0.6 % (0-0.5); Lymphocytes Absolute Auto 0.61 K/mm3 (0.9-3.2); Lymphocytes Percent Auto 4.1 % (18.3-44.2); Mean Corpuscular HGB Conc 32.6 g/dl (32-36); Mean Corpuscular Hemoglobin 29.8 pg (26-34); Mean Corpuscular Volume 91.3 fl (80-100); Mean Platelet Volume 11.6 fl (7.4-10.4); Monocytes Percent Auto 6.9 % (2.6-8.5); Neutrophils Absolute Auto 13.3 K/mm3 (1.3-6.7); Neutrophils Percent Auto 88.3 % (45.5-73.1); Platelet Count Result 179 k/mm3 (150-375); Red Cell Distribution Width 14.3 % (11.5-14.5)
[2021-01-09 06:32] LABS: Glucose Point of Care 182 (65-105)
[2021-01-09 06:53] LABS: Alanine Aminotransferase 33 U/L (4-35); Albumin Level 3.1 g/dL (3.5-5.1); Alkaline Phosphatase 89 U/L (38-126); Anion Gap 2 mmol/L (8-16); Aspartate Amino Transferase 43 U/L (14-36); Bilirubin,Total 0.9 mg/dL (0.2-1.3); Blood Urea Nitrogen 16 mg/dL (7-17); Calcium 9.4 mg/dL (8.4-10.2); Carbon Dioxide 29 mmol/L (22-30); Chloride 103 mmol/L (98-107); Estimated CRCL calculation 68 ml/min; Estimated Glomerular Filt Rate > 60; Glucose 186 mg/dL (65-105); Magnesium 1.4 mg/dL (1.6-2.3); Sodium 134 mmol/L (137-145)
[2021-01-09] MEDS: INSULIN GLARGINE (*BKC) 100 UNITS/ML 27 UNITS SUB-Q (08:00)
[2021-01-09] MEDS: HYDROcodone/acetaminophen (*CRX) 5-325 MG TABLET 1 TAB PO ×3 (08:02→21:03)
[2021-01-09] MEDS: METOPROLOL SUCCINATE EXT REL 50 MG TABCR PO (08:04)
[2021-01-09] MEDS: amLODIPine BESYLATE 5 MG TABLET 10 MG PO (08:04)
[2021-01-09] MEDS: PANTOPRAZOLE SODIUM IV 40 MG VIAL IV PUSH (08:04)
[2021-01-09] MEDS: LOSARTAN POTASSIUM 100 MG TABLET PO (08:04)
--- NOTE | 2021-01-09 08:08 | WPDANESPN ---
Anes - Prog Note Post-Op Date/Time: 01/09/21 08:08 Cardiovascular status: normal Respiratory status: normal Airway patency: baseline Mental status: baseline Post-Op hydration status: normal Vital Signs: Last Vital Signs Temp 37.0 C 01/09/21 04:00 Pulse 100 01/09/21 04:00 Resp 20 01/09/21 04:00 BP 144/63 H 01/09/21 04:00 Pulse Ox 90 01/09/21 04:00 Pain Score (VAS): 3 I/O: Intake & Output 01/08/21 01/09/21 01/09/21 23:59 07:59 15:59 Intake Total 1680 100 Output Total 700 200 Balance 980 -100 Laboratory Tests 01/09/21 06:07 01/09/21 06:07 01/08/21 01/08/21 01/08/21 07:56 11:15 13:25 WBC RBC Hgb Hct MCV MCH MCHC RDW Plt Count MPV Immature Gran % (Auto) Neut % (Auto) Lymph % (Auto) [place] % (Auto) Eos % (Auto) Baso % (Auto) Lymph # (Auto) [place] # (Auto) Eos # (Auto) Baso # (Auto) Abs Immat Gran (auto) Absolute Neuts (auto) Absolute Nucleated RBC Nucleated RBC % Sodium Potassium Chloride Carbon Dioxide Anion Gap BUN Creatinine Estim Creat Clear Calc Estimated GFR Glucose POC Capillary Glucose 152 H 147 H 206 H Calcium Magnesium Total Bilirubin AST ALT Alkaline Phosphatase Total Protein Albumin 01/08/21 01/08/21 01/08/21 15:07 17:16 22:42 WBC RBC Hgb Hct MCV MCH MCHC RDW Plt Count MPV Immature Gran % (Auto) Neut % (Auto) Lymph % (Auto) [facility] % (Auto) Eos % (Auto) Baso % (Auto) Lymph # (Auto) [facility] # (Auto) Eos # (Auto) Baso # (Auto) Abs Immat Gran (auto) Absolute Neuts (auto) Absolute Nucleated RBC Nucleated RBC % Sodium Potassium Chloride Carbon Dioxide Anion Gap BUN Creatinine Estim Creat Clear Calc Estimated GFR Glucose POC Capillary Glucose 243 H 234 H 230 H Calcium Magnesium Total Bilirubin AST ALT Alkaline Phosphatase Total Protein Albumin 01/09/21 01/09/21 01/09/21 06:07 06:07 06:09 WBC 15.0 H RBC 4.50 Hgb 13.4 Hct 41.1 MCV 91.3 MCH 29.8 MCHC 32.6 RDW 14.3 Plt Count 179 MPV 11.6 H Immature Gran % (Auto) 0.6 H Neut % (Auto) 88.3 H Lymph % (Auto) 4.[address] % (Auto) 6.9 Eos % (Auto) 0.0 Baso % (Auto) 0.1 L Lymph # (Auto) 0.[address] # (Auto) 1.0 H Eos # (Auto) 0.0 Baso # (Auto) 0.0 Abs Immat Gran (auto) 0.09 H Absolute Neuts (auto) 13.3 H Absolute Nucleated RBC 0.0 Nucleated RBC % 0.0 Sodium 134 L Potassium 4.0 Chloride 103 Carbon Dioxide 29 Anion Gap 2 L BUN 16 Creatinine 0.90 Estim Creat Clear Calc 68 Estimated GFR > 60 Glucose 186 H POC Capillary Glucose 182 H Calcium 9.4 Magnesium 1.4 L Total Bilirubin 0.9 AST 43 H ALT 33 Alkaline Phosphatase 89 Total Protein 6.0 L Albumin 3.1 L Post-procedural complaints: none Patient Feedback: Patient satisfied with anesthetic care.
[2021-01-09 09:02] LABS: Glucose Point of Care 212 (65-105)
[2021-01-09] MEDS: MAGNESIUM SULFATE 3GM/D5W100ML 3 GM/100 ML BAG IVPB (09:25)
--- NOTE | 2021-01-09 11:01 | PM.PNGS ---
Progress Note: A&P Assessment and Plan (1) Acute cholecystitis: Code(s): K81.0 - Acute cholecystitis Status: Acute Assessment and Plan: slowly ADAT, cont abx, cont pain control, encourage OOB, anticipate dc tomorrow Subjective Subjective Date/Time Seen: 01/09/21 11:01 feels better but pretty sore, jeovanny clears Review of Systems Review of Systems: All systems reviewed & are unremarkable except as noted in HPI and below Exam Const: General: cooperative, comfortable and no acute distress Resp: Effort & Inspection: normal respiratory effort Auscultation: clear to auscultation bilaterally Cardio: Rate: regular rate Rhythm: regular rhythm GI: Inspection: normal to inspection, distended and incision GI Palp: Yes Soft to palpation and Yes Tenderness to palpation present (GI) Other: soft, sl dist, bonny TTP, incisions C/D/I Objective Data Vital Signs Vital Signs: Vital Signs - 24 hr 01/08/21 11:35 01/08/21 13:01 01/08/21 13:15 Temperature 36.4 C L Pulse Rate 80 96 84 Respiratory Rate 13 18 16 Blood Pressure 144/69 H 144/55 H Pulse Oximetry 92 92 91 01/08/21 13:30 01/08/21 13:45 01/08/21 13:53 Temperature Pulse Rate 80 85 87 Respiratory Rate 16 14 14 Blood Pressure 149/60 H 161/66 H 154/66 H Pulse Oximetry 95 94 95 01/08/21 14:05 01/08/21 14:15 01/08/21 14:30 Temperature Pulse Rate 85 86 80 Respiratory Rate 14 14 16 Blood Pressure 155/64 H 150/60 H 149/64 H Pulse Oximetry 94 95 94 01/08/21 14:40 01/08/21 14:45 01/08/21 15:00 Temperature 36.2 C L Pulse Rate 89 88 95 Respiratory Rate 16 16 16 Blood Pressure 144/57 H 147/61 H 147/52 H Pulse Oximetry 95 96 96 01/08/21 15:15 01/08/21 15:45 01/08/21 17:50 Temperature 36.3 C L 36.7 C Pulse Rate 93 91 Respiratory Rate 18 16 Blood Pressure 148/58 H 154/67 H Pulse Oximetry 94 91 91 01/08/21 20:00 01/08/21 22:39 01/09/21 00:30 Temperature 37.1 C 37.2 C Pulse Rate 100 108 H Respiratory Rate 16 20 Blood Pressure 146/68 H 142/67 H Pulse Oximetry 90 88 L 91 01/09/21 04:00 01/09/21 08:00 01/09/21 08:04 Temperature 37.0 C 37.1 C Pulse Rate 100 112 H 112 H Respiratory Rate 20 22 H Blood Pressure 144/63 H 120/54 L Pulse Oximetry 90 90 01/09/21 09:13 Temperature Pulse Rate Respiratory Rate Blood Pressure Pulse Oximetry 91 Intake/Output Intake/Output: Intake & Output 01/06/21 01/07/21 01/08/21 01/09/21 23:59 23:59 23:59 23:59 Intake Total 1250 2130 300 Output Total 900 200 Balance 1250 1230 100 Meds/Results Medications: Active Medications Generic Name Dose Route Start Last Admin Trade Name Freq PRN Reason Stop Dose Admin Hydrocodone Bitart/Acetaminophen 1 tab 01/08/21 12:52 01/09/21 08:02 Hydrocodone/Acetaminophen (*Crx) 5-325 Mg Tablet PO 1 tab Q4H PRN Administration Pain Rated 4-6 Amlodipine Besylate 10 mg 01/09/21 09:00 01/09/21 08:04 Amlodipine Besylate 5 Mg Tablet PO 10 mg QAM MINERVA Administration Dextrose 12.5 gm 01/07/21 21:50 Dextrose 50% 25 Gm/50 Ml Syringe IV PUSH PRN PRN Hypoglycemia Protocol Dicyclomine HCl 20 mg 01/07/21 16:56 Dicyclomine Hcl Inj 20 Mg/2 Ml Vial IM Q6H PRN Abdominal Cramping Glucagon 1 mg 01/07/21 21:50 Glucagon For Inj 1 Mg Vial IM PRN PRN Hypoglycemia Protocol Glucose 15 gm 01/07/21 21:50 Glucose Oral Gel 15 Gm Of Glucse In 37.5 Gm Tube PO PRN PRN Hypoglycemia Protocol Lactated Ringer's 1,000 mls @ 75 mls/hr 01/07/21 17:00 01/09/21 07:32 Lr - Lactated Ringers Iv IV CONT Not Given .[id number] MINERVA Ceftriaxone Sodium/Dextrose 1 gm in 50 mls @ 100 mls/hr 01/08/21 14:00 01/08/21 16:13 Rocephin 1 Gm/D5w 50 Ml IVPB 100 mls/hr Q24H MINERVA Administration Dextrose 1,000 mls @ 100 mls/hr 01/07/21 21:50 Dextrose 5% 1,000 Ml IVPB PRN PRN Hypoglycemia Protocol Metronidazole 500 mg in 100 mls @ 100 mls
--- NOTE | 2021-01-09 11:46 | P.PNIM_ITS ---
Progress Note: A&P Assessment and Plan (1) Acute cholecystitis: Code(s): K81.0 - Acute cholecystitis Status: Acute Assessment and Plan: Dr. Burk (general surgery) consulted and appreciate recommendations; patient underwent lap tigist 01/08/21 and I was told by the surgery team that she had some purulence drainage. ; acute suppurative and hydrops cholecystitis per note. * Will continue IV antibiotics. * Continue IV fluids; will reduce rate to 75 mL/hr * Continue pain control with IV pain meds prn tonight * diet per General Surgery * Continue with general surgery recommendations. * Monitor (2) Sepsis: Qualifiers: Sepsis acute organ dysfunction status: without acute organ dysfunction Sepsis type: sepsis due to unspecified organism Qualified Code(s): A41.9 - Sepsis, unspecified organism Code(s): A41.9 - Sepsis, unspecified organism Status: Acute Assessment and Plan: SEPSIS criteria met with tachycardia and leukocytosis; gallbladder suspected source. * Continue IV antibiotics (day 3) * Monitor vital signs and urine output closely. * Monitor acid-base status. (3) Diabetes mellitus: Qualifiers: Diabetes mellitus complication status: without complication Diabetes mellitus [facility] insulin use: with manager terminal use Diabetes mellitus type: type 2 Qualified Code(s): E11.9 - Type 2 diabetes mellitus without complications; Z79.4 - penitentiary (current) use of insulin Code(s): E11.9 - Type 2 diabetes mellitus without complications Status: Chronic Assessment and Plan: BGL 180s-200s today. A1c 7.2% * Accu-Cheks, sliding scale insulin coverage, hypoglycemia protocol * Not eating much, will continue Lantus 27 Units. Advance diet at tolerated per surgery. * Hold home oral hypoglycemic agents Monitor (4) CKD (chronic kidney disease), stage III: Qualifiers: Chronic kidney disease stage 3 subtype: unspecified whether 3a or 3b Qualified Code(s): N18.30 - Chronic kidney disease, stage 3 unspecified Code(s): N18.3 - Chronic kidney disease, stage 3 (moderate) Status: Chronic Assessment and Plan: Cr 0.90, Stable. * Monitor renal function. * Avoid nephrotoxin agents. * Renally dose medications. (5) Chronic GERD: Code(s): K21.9 - Gastro-esophageal reflux disease without esophagitis Status: Chronic Assessment and Plan: No acute issues * Protonix IV daily for now. Resume home PPI equivalent once tolerating diet (6) Essential hypertension: Code(s): I10 - Essential (primary) hypertension Status: Chronic Assessment and Plan: BP 120/54. Elevated during this stay likely 2/2 pain * Monitor blood pressure. * IV hydralazine with parameters as ordered. * Resume home metoprolol and losartan when the patient is eating again. (7) Hyperlipidemia: Qualifiers: Hyperlipidemia type: unspecified Qualified Code(s): E78.5 - Hyperlipidemia, unspecified Code(s): E78.5 - Hyperlipidemia, unspecified Status: Chronic Assessment and Plan: Resume simvastatin when possible. (8) MARTÍN (obstructive sleep apnea): Code(s): G47.33 - Obstructive sleep apnea (adult) (pediatric) Status: Chronic Assessment and Plan: * Continue home CPAP.
--- NOTE | 2021-01-09 11:46 | PM.IMPN ---
Progress Note: A&P Assessment and Plan (1) Acute cholecystitis: Code(s): K81.0 - Acute cholecystitis Status: Acute Assessment and Plan: Dr. Burk (general surgery) consulted and appreciate recommendations; patient underwent lap tigist 01/08/21 and I was told by the surgery team that she had some purulence drainage. ; acute suppurative and hydrops cholecystitis per note. Will continue IV antibiotics. Continue IV fluids; will reduce rate to 75 mL/hr Continue pain control with IV pain meds prn tonight diet per General Surgery Continue with general surgery recommendations. Monitor (2) Sepsis: Qualifiers: Sepsis acute organ dysfunction status: without acute organ dysfunction Sepsis type: sepsis due to unspecified organism Qualified Code(s): A41.9 - Sepsis, unspecified organism Code(s): A41.9 - Sepsis, unspecified organism Status: Acute Assessment and Plan: SEPSIS criteria met with tachycardia and leukocytosis; gallbladder suspected source. Continue IV antibiotics (day 3) Monitor vital signs and urine output closely. Monitor acid-base status. (3) Diabetes mellitus: Qualifiers: Diabetes mellitus complication status: without complication Diabetes mellitus senior care insulin use: with senior care use Diabetes mellitus type: type 2 Qualified Code(s): E11.9 - Type 2 diabetes mellitus without complications; Z79.4 - intermediate card tender (current) use of insulin Code(s): E11.9 - Type 2 diabetes mellitus without complications Status: Chronic Assessment and Plan: BGL 180s-200s today. A1c 7.2% Accu-Cheks, sliding scale insulin coverage, hypoglycemia protocol Not eating much, will continue Lantus 27 Units. Advance diet at tolerated per surgery. Hold home oral hypoglycemic agents Monitor (4) CKD (chronic kidney disease), stage III: Qualifiers: Chronic kidney disease stage 3 subtype: unspecified whether 3a or 3b Qualified Code(s): N18.30 - Chronic kidney disease, stage 3 unspecified Code(s): N18.3 - Chronic kidney disease, stage 3 (moderate) Status: Chronic Assessment and Plan: Cr 0.90, Stable. Monitor renal function. Avoid nephrotoxin agents. Renally dose medications. (5) Chronic GERD: Code(s): K21.9 - Gastro-esophageal reflux disease without esophagitis Status: Chronic Assessment and Plan: No acute issues Protonix IV daily for now. Resume home PPI equivalent once tolerating diet (6) Essential hypertension: Code(s): I10 - Essential (primary) hypertension Status: Chronic Assessment and Plan: BP 120/54. Elevated during this stay likely 2/2 pain Monitor blood pressure. IV hydralazine with parameters as ordered. Resume home metoprolol and losartan when the patient is eating again. (7) Hyperlipidemia: Qualifiers: Hyperlipidemia type: unspecified Qualified Code(s): E78.5 - Hyperlipidemia, unspecified Code(s): E78.5 - Hyperlipidemia, unspecified Status: Chronic Assessment and Plan: Resume simvastatin when possible. (8) MARTÍN (obstructive sleep apnea): Code(s): G47.33 - Obstructive sleep apnea (adult) (pediatric) Status: Chronic Assessment and Plan: Continue home CPAP. (9) Cold sore: Code(s): B00.1 - Herpesviral vesicular dermatitis Status: Acute Assessment and Plan: Will continue home Valacyclovir 2000 mg PO Q12hrs as needed for cold sore. Time Spent With Patient Time with patient: 25 - 35 minutes Subjective Date/time seen: 01/09/21 11:46 Inter
[2021-01-09 11:51] LABS: Glucose Point of Care 216 (65-105)
[2021-01-09] MEDS: LACTATED RINGERS 1,000 ML 75 ML IV CONT (12:01)
--- NOTE | 2021-01-09 12:30 | PC.NURSE ---
This nurse attempted to educate the patient on the importance of incentive spirometry and physical activity after surgery. I explained to her that not participating in these things will cause her to develop pneumonia. The patient will not move because it's too painful. I have educated the patient that surgery recovery will not be 100% pain free, but that we will aim for more controlled pain.
[2021-01-09 17:04] LABS: Glucose Point of Care 207 (65-105)
[2021-01-09] MEDS: valACYclovir HCL 500 MG TABLET 2000 MG PO (17:27)
[2021-01-09 21:11] LABS: Glucose Point of Care 141 (65-105)
[2021-01-09] MEDS: MORPHINE SULFATE (*CRX) 2 MG/ML INJ IV PUSH (22:43)
[2021-01-10] MEDS: metroNIDAZOLE 500 MG/ISO 100ML 500 MG/100 ML BAG 100 MG IVPB ×4 (02:47→20:09)
[2021-01-10 06:00] VITALS: BP 132/57; PULSE 94; RESP 20; TEMP 37; O2SAT 90
[2021-01-10] MEDS: valACYclovir HCL 500 MG TABLET 2000 MG PO (06:29)
[2021-01-10] MEDS: LACTATED RINGERS 1,000 ML 75 ML IV CONT ×2 (06:31→19:01)
[2021-01-10 06:34] LABS: Basophils Percent Auto 0.2 % (0.2-1.2); Eosinophils Percent Auto 0.1 % (0-4.4); Hematocrit 39.1 % (37.0-47.0); Hemoglobin 12.7 g/dL (12.0-15.0); Immature Granulocyte Absolute 0.07 K/mm3 (0.00-0.031); Immature Granulocyte Percent A 0.5 % (0-0.5); Lymphocytes Absolute Auto 0.98 K/mm3 (0.9-3.2); Lymphocytes Percent Auto 6.9 % (18.3-44.2); Mean Corpuscular HGB Conc 32.5 g/dl (32-36); Mean Corpuscular Hemoglobin 29.4 pg (26-34); Mean Corpuscular Volume 90.5 fl (80-100); Mean Platelet Volume 11.8 fl (7.4-10.4); Monocytes Percent Auto 6.7 % (2.6-8.5); Neutrophils Absolute Auto 12.2 K/mm3 (1.3-6.7); Neutrophils Percent Auto 85.6 % (45.5-73.1); Platelet Count Result 218 k/mm3 (150-375); Red Blood Count 4.32 M/mm3 (4.2-5.4); Red Cell Distribution Width 14.2 % (11.5-14.5); White Blood Count 14.3 K/mm3 (4.5-10.0)
[2021-01-10] MEDS: MORPHINE SULFATE (*CRX) 2 MG/ML INJ IV PUSH (06:38)
[2021-01-10 06:45] LABS: Alanine Aminotransferase 30 U/L (4-35); Alkaline Phosphatase 92 U/L (38-126); Anion Gap 5 mmol/L (8-16); Aspartate Amino Transferase 28 U/L (14-36); Bilirubin,Total 0.7 mg/dL (0.2-1.3); Blood Urea Nitrogen 26 mg/dL (7-17); Calcium 9.3 mg/dL (8.4-10.2); Carbon Dioxide 26 mmol/L (22-30); Chloride 104 mmol/L (98-107); Estimated CRCL calculation 61 ml/min; Estimated Glomerular Filt Rate 56; Glucose 157 mg/dL (65-105); Sodium 135 mmol/L (137-145)
[2021-01-10 07:44] LABS: Glucose Point of Care 162 (65-105)
[2021-01-10] MEDS: INSULIN GLARGINE (*BKC) 100 UNITS/ML 27 UNITS SUB-Q (08:29)
[2021-01-10 08:31] VITALS: PULSE 94
[2021-01-10] MEDS: LOSARTAN POTASSIUM 100 MG TABLET PO (08:31)
[2021-01-10] MEDS: METOPROLOL SUCCINATE EXT REL 50 MG TABCR PO (08:31)
[2021-01-10] MEDS: amLODIPine BESYLATE 5 MG TABLET 10 MG PO (08:31)
[2021-01-10] MEDS: PANTOPRAZOLE SODIUM IV 40 MG VIAL IV PUSH (08:31)
[2021-01-10] MEDS: HYDROcodone/acetaminophen (*CRX) 5-325 MG TABLET 1 TAB PO ×3 (08:34→19:01)
--- NOTE | 2021-01-10 08:54 | PM.PNGS ---
Progress Note: A&P Assessment and Plan (1) Acute cholecystitis: Code(s): K81.0 - Acute cholecystitis Status: Acute Assessment and Plan: slowly improving, pain control, encourage OOB/IS, cont abx for now Subjective Subjective Date/Time Seen: 01/10/21 08:54 c/o incisional soreness/spasm c movt, jeovanny diet Review of Systems Review of Systems: All systems reviewed & are unremarkable except as noted in HPI and below Exam Const: General: cooperative, comfortable and no acute distress Orientation/consciousness: patient oriented x3 Resp: Auscultation: clear to auscultation bilaterally Cardio: Rate: regular rate Rhythm: regular rhythm GI: Inspection: normal to inspection, distended and incision GI Palp: Yes Soft to palpation and Yes Tenderness to palpation present (GI) Other: soft, sl dist, bonny TTP, incisions C/D/I Objective Data Vital Signs Vital Signs: Vital Signs - 24 hr 01/09/21 09:13 01/09/21 12:00 01/09/21 16:18 Temperature 36.8 C 36.3 C L Pulse Rate 84 106 H Respiratory Rate 24 H 20 Blood Pressure 122/56 L 129/76 Pulse Oximetry 91 91 98 01/09/21 20:00 01/09/21 22:00 01/09/21 23:20 Temperature 37.2 C Pulse Rate 100 100 Respiratory Rate 16 16 Blood Pressure 124/62 Pulse Oximetry 90 90 91 01/10/21 06:00 01/10/21 08:31 Temperature 37.0 C Pulse Rate 94 94 Respiratory Rate 20 Blood Pressure 132/57 L Pulse Oximetry 90 Intake/Output Intake/Output: Intake & Output 01/07/21 01/08/21 01/09/21 01/10/21 23:59 23:59 23:59 23:59 Intake Total 1250 2180 2930 1300 Output Total 900 600 550 Balance 1250 1280 2330 750 Meds/Results Medications: Active Medications Generic Name Dose Route Start Last Admin Trade Name Freq PRN Reason Stop Dose Admin Hydrocodone Bitart/Acetaminophen 1 tab 01/08/21 12:52 01/10/21 08:34 Hydrocodone/Acetaminophen (*Crx) 5-325 Mg Tablet PO 1 tab Q4H PRN Administration Pain Rated 4-6 Amlodipine Besylate 10 mg 01/09/21 09:00 01/10/21 08:31 Amlodipine Besylate 5 Mg Tablet PO 10 mg QAM MINERVA Administration Dextrose 12.5 gm 01/07/21 21:50 Dextrose 50% 25 Gm/50 Ml Syringe IV PUSH PRN PRN Hypoglycemia Protocol Dicyclomine HCl 20 mg 01/07/21 16:56 Dicyclomine Hcl Inj 20 Mg/2 Ml Vial IM Q6H PRN Abdominal Cramping Glucagon 1 mg 01/07/21 21:50 Glucagon For Inj 1 Mg Vial IM PRN PRN Hypoglycemia Protocol Glucose 15 gm 01/07/21 21:50 Glucose Oral Gel 15 Gm Of Glucse In 37.5 Gm Tube PO PRN PRN Hypoglycemia Protocol Lactated Ringer's 1,000 mls @ 75 mls/hr 01/07/21 17:00 01/10/21 06:31 Lr - Lactated Ringers Iv IV CONT 75 mls/hr .[id number] MINERVA Administration Ceftriaxone Sodium/Dextrose 1 gm in 50 mls @ 100 mls/hr 01/08/21 14:00 01/09/21 15:45 Rocephin 1 Gm/D5w 50 Ml IVPB Infused Q24H MINERVA Infusion Dextrose 1,000 mls @ 100 mls/hr 01/07/21 21:50 Dextrose 5% 1,000 Ml IVPB PRN PRN Hypoglycemia Protocol Metronidazole 500 mg in 100 mls @ 100 mls/hr 01/08/21 21:00 01/10/21 08:30 Flagyl 500 Mg/Iso Soln 100 Ml IVPB 100 mls/hr Q6H MINERVA Administration Insulin Aspart 2 - 5 units 01/09/21 12:00 01/10/21 07:58 Insulin Aspart (*Bkc) 100 Units/Ml SUB-Q Not Given TIDWM MINERVA Protocol Insulin Glargine 27 units 01/09/21 09:00 01/10/21 08:29 Insulin Glargine (*Bkc) 100 Units/Ml 0.25 units/kg (27 units) 27 units SUB-Q Administration DAILY MINERVA Losartan Potassium 100 mg 01/09/21 09:00 01/10/21 08:31 Losartan Potassium 100 Mg Tablet PO 100 mg DAILY MINERVA Administration Metoprolol Succinate 50 mg 01/09/21 09:00 01/10/21 08:31 Metoprolol Succinate Ext Rel 50 Mg Tabcr PO 50 mg QAM MINERVA Administration Ondansetron HCl 4 mg 01/07/21 16:56 01/08/21 08:55 Ondansetron Inj 4 Mg/2 Ml Vial IV PUSH 4 mg Q4H PRN Administration Nausea Pantoprazole Sodium 40 mg
[2021-01-10 11:49] LABS: Glucose Point of Care 238 (65-105)
--- NOTE | 2021-01-10 11:51 | P.PNIM_ITS ---
Progress Note: A&P Assessment and Plan (1) Acute cholecystitis: Code(s): K81.0 - Acute cholecystitis Status: Acute Assessment and Plan: Dr. Burk (general surgery) consulted and appreciate recommendations; patient underwent lap tigist 01/08/21 and I was told by the surgery team that she had some purulence drainage; acute suppurative and hydrops cholecystitis per note. * Will continue IV antibiotics. * Discontinue IV fluids at this time. She is eating and drinking without any nausea vomiting. * Trying to keep the patient oral pain medications p.r.n.. * She is eating a diabetic diet at this time but does not have much appetite. * Continue with general surgery recommendations. * Monitor (2) Sepsis: Qualifiers: Sepsis acute organ dysfunction status: without acute organ dysfunction Sepsis type: sepsis due to unspecified organism Qualified Code(s): A41.9 - Sepsis, unspecified organism Code(s): A41.9 - Sepsis, unspecified organism Status: Acute Assessment and Plan: SEPSIS criteria met with tachycardia and leukocytosis; gallbladder suspected source. * Continue IV antibiotics (day 4) * Monitor vital signs and urine output closely. * Monitor acid-base status. (3) Diabetes mellitus: Qualifiers: Diabetes mellitus complication status: without complication Diabetes mellitus half-way insulin use: with half-way use Diabetes mellitus type: type 2 Qualified Code(s): E11.9 - Type 2 diabetes mellitus without complications; Z79.4 - buttermaker (current) use of insulin Code(s): E11.9 - Type 2 diabetes mellitus without complications Status: Chronic Assessment and Plan: BGL 150s-200s today. A1c 7.2% * Accu-Cheks, sliding scale insulin coverage, hypoglycemia protocol * Not eating much, will continue Lantus 27 Units. Advance diet at tolerated per surgery. * Hold home oral hypoglycemic agents Monitor (4) CKD (chronic kidney disease), stage III: Qualifiers: Chronic kidney disease stage 3 subtype: unspecified whether 3a or 3b Qualified Code(s): N18.30 - Chronic kidney disease, stage 3 unspecified Code(s): N18.3 - Chronic kidney disease, stage 3 (moderate) Status: Chronic Assessment and Plan: Cr 1.0, Stable. * Monitor renal function. * Avoid nephrotoxin agents. * Renally dose medications. (5) Chronic GERD: Code(s): K21.9 - Gastro-esophageal reflux disease without esophagitis Status: Chronic Assessment and Plan: No acute issues * Protonix IV daily for now. Resume home PPI equivalent once tolerating diet (6) Essential hypertension: Code(s): I10 - Essential (primary) hypertension Status: Chronic Assessment and Plan: BP 132/57. Elevated during this stay likely 2/2 pain * Monitor blood pressure. * IV hydralazine with parameters as ordered. * Resume home metoprolol and losartan when the patient is eating again. (7) Hyperlipidemia: Qualifiers: Hyperlipidemia type: unspecified Qualified Code(s): E78.5 - Hyperlipidemia, unspecified Code(s): E78.5 - Hyperlipidemia, unspecified Status: Chronic Assessment and Plan: Resume simvastatin when possible. (8) MARTÍN (obstructive sleep apnea): Code(s): G47.33 - Obstructive sleep apnea (adult) (
--- NOTE | 2021-01-10 11:51 | PM.IMPN ---
Progress Note: A&P Assessment and Plan (1) Acute cholecystitis: Code(s): K81.0 - Acute cholecystitis Status: Acute Assessment and Plan: Dr. Burk (general surgery) consulted and appreciate recommendations; patient underwent lap tigist 01/08/21 and I was told by the surgery team that she had some purulence drainage; acute suppurative and hydrops cholecystitis per note. Will continue IV antibiotics. Discontinue IV fluids at this time. She is eating and drinking without any nausea vomiting. Trying to keep the patient oral pain medications p.r.n.. She is eating a diabetic diet at this time but does not have much appetite. Continue with general surgery recommendations. Monitor (2) Sepsis: Qualifiers: Sepsis acute organ dysfunction status: without acute organ dysfunction Sepsis type: sepsis due to unspecified organism Qualified Code(s): A41.9 - Sepsis, unspecified organism Code(s): A41.9 - Sepsis, unspecified organism Status: Acute Assessment and Plan: SEPSIS criteria met with tachycardia and leukocytosis; gallbladder suspected source. Continue IV antibiotics (day 4) Monitor vital signs and urine output closely. Monitor acid-base status. (3) Diabetes mellitus: Qualifiers: Diabetes mellitus complication status: without complication Diabetes mellitus skilled nursing insulin use: with intermission coordinator use Diabetes mellitus type: type 2 Qualified Code(s): E11.9 - Type 2 diabetes mellitus without complications; Z79.4 - medical terminologist (current) use of insulin Code(s): E11.9 - Type 2 diabetes mellitus without complications Status: Chronic Assessment and Plan: BGL 150s-200s today. A1c 7.2% Accu-Cheks, sliding scale insulin coverage, hypoglycemia protocol Not eating much, will continue Lantus 27 Units. Advance diet at tolerated per surgery. Hold home oral hypoglycemic agents Monitor (4) CKD (chronic kidney disease), stage III: Qualifiers: Chronic kidney disease stage 3 subtype: unspecified whether 3a or 3b Qualified Code(s): N18.30 - Chronic kidney disease, stage 3 unspecified Code(s): N18.3 - Chronic kidney disease, stage 3 (moderate) Status: Chronic Assessment and Plan: Cr 1.0, Stable. Monitor renal function. Avoid nephrotoxin agents. Renally dose medications. (5) Chronic GERD: Code(s): K21.9 - Gastro-esophageal reflux disease without esophagitis Status: Chronic Assessment and Plan: No acute issues Protonix IV daily for now. Resume home PPI equivalent once tolerating diet (6) Essential hypertension: Code(s): I10 - Essential (primary) hypertension Status: Chronic Assessment and Plan: BP 132/57. Elevated during this stay likely 2/2 pain Monitor blood pressure. IV hydralazine with parameters as ordered. Resume home metoprolol and losartan when the patient is eating again. (7) Hyperlipidemia: Qualifiers: Hyperlipidemia type: unspecified Qualified Code(s): E78.5 - Hyperlipidemia, unspecified Code(s): E78.5 - Hyperlipidemia, unspecified Status: Chronic Assessment and Plan: Resume simvastatin when possible. (8) MARTÍN (obstructive sleep apnea): Code(s): G47.33 - Obstructive sleep apnea (adult) (pediatric) Status: Chronic Assessment and Plan: Continue home CPAP. (9) Cold sore: Code(s): B00.1 - Herpesviral vesicular dermatitis Status: Acute Assessment and Plan: Will continue home Valacyclovir 2000 mg PO Q12hrs as needed for cold sore. Time Spent With Pat
[2021-01-10] MEDS: INSULIN ASPART (*BKC) 100 UNITS/ML SUB-Q (11:58)
[2021-01-10 14:00] VITALS: BP 150/69; PULSE 80; RESP 16; TEMP 36.6; O2SAT 97
[2021-01-10 17:08] LABS: Glucose Point of Care 107 (65-105)
[2021-01-10 20:13] VITALS: PULSE 80; RESP 16; O2SAT 97
[2021-01-10 21:28] LABS: Glucose Point of Care 240 (65-105)
[2021-01-11] MEDS: metroNIDAZOLE 500 MG/ISO 100ML 500 MG/100 ML BAG 100 MG IVPB ×3 (03:03→14:05)
[2021-01-11 06:59] LABS: Basophils Percent Auto 0.3 % (0.2-1.2); Eosinophils Absolute Auto 0.1 K/mm3 (0-0.3); Eosinophils Percent Auto 0.9 % (0-4.4); Hematocrit 38.2 % (37.0-47.0); Hemoglobin 12.4 g/dL (12.0-15.0); Immature Granulocyte Absolute 0.05 K/mm3 (0.00-0.031); Immature Granulocyte Percent A 0.5 % (0-0.5); Lymphocytes Absolute Auto 0.96 K/mm3 (0.9-3.2); Lymphocytes Percent Auto 9.1 % (18.3-44.2); Mean Corpuscular HGB Conc 32.5 g/dl (32-36); Mean Corpuscular Volume 92.3 fl (80-100); Mean Platelet Volume 11.7 fl (7.4-10.4); Monocytes Absolute Auto 0.8 K/mm3 (0.1-0.6); Monocytes Percent Auto 7.2 % (2.6-8.5); Neutrophils Absolute Auto 8.7 K/mm3 (1.3-6.7); Platelet Count Result 215 k/mm3 (150-375); Red Blood Count 4.14 M/mm3 (4.2-5.4); Red Cell Distribution Width 14.4 % (11.5-14.5); White Blood Count 10.6 K/mm3 (4.5-10.0)
[2021-01-11 07:10] LABS: Anion Gap 4 mmol/L (8-16); Blood Urea Nitrogen 29 mg/dL (7-17); Calcium 8.9 mg/dL (8.4-10.2); Carbon Dioxide 27 mmol/L (22-30); Chloride 103 mmol/L (98-107); Estimated CRCL calculation 52 ml/min; Estimated Glomerular Filt Rate 45; Glucose 168 mg/dL (65-105); Potassium 3.9 mmol/L (3.4-5.0); Sodium 134 mmol/L (137-145)
[2021-01-11 07:44] LABS: Glucose Point of Care 160 (65-105)
[2021-01-11 08:50] VITALS: PULSE 88
[2021-01-11] MEDS: amLODIPine BESYLATE 5 MG TABLET 10 MG PO (08:50)
[2021-01-11] MEDS: METOPROLOL SUCCINATE EXT REL 50 MG TABCR PO (08:50)
[2021-01-11] MEDS: LOSARTAN POTASSIUM 100 MG TABLET PO (08:50)
[2021-01-11] MEDS: INSULIN GLARGINE (*BKC) 100 UNITS/ML 27 UNITS SUB-Q (08:53)
[2021-01-11] MEDS: PANTOPRAZOLE SODIUM IV 40 MG VIAL IV PUSH (10:22)
[2021-01-11 11:34] LABS: Glucose Point of Care 240 (65-105)
[2021-01-11] MEDS: INSULIN ASPART (*BKC) 100 UNITS/ML SUB-Q (12:16)
[2021-01-11] MEDS: FUROSEMIDE INJ 40 MG/4 ML VIAL 20 MG IV PUSH (13:17)
--- NOTE | 2021-01-11 13:27 | PM.PNGS ---
Progress Note: A&P Assessment and Plan (1) Acute cholecystitis: Code(s): K81.0 - Acute cholecystitis Status: Acute Assessment and Plan: much improved, ok to dc home c po analgesia, will dc abx, f/u 2 wks p dc Subjective Subjective Date/Time Seen: 01/11/21 13:27 feels better today, less pain, jeovanny diet, +bowel movt Review of Systems Review of Systems: All systems reviewed & are unremarkable except as noted in HPI and below Exam Const: General: cooperative, comfortable and no acute distress Resp: Effort & Inspection: normal respiratory effort Auscultation: clear to auscultation bilaterally Cardio: Rate: regular rate Rhythm: regular rhythm GI: Inspection: normal to inspection, distended and incision GI Palp: Yes Soft to palpation and Yes Tenderness to palpation present (GI) Other: soft, sl dist, bonny TTP, incisions C/D/I Objective Data Vital Signs Vital Signs: Vital Signs - 24 hr 01/10/21 14:00 01/10/21 20:13 01/11/21 08:50 Temperature 36.6 C Pulse Rate 80 80 88 Respiratory Rate 16 16 Blood Pressure 150/69 H Pulse Oximetry 97 97 Intake/Output Intake/Output: Intake & Output 01/08/21 01/09/21 01/10/21 01/11/21 23:59 23:59 23:59 23:59 Intake Total 2180 2930 3920 1820 Output Total 900 600 900 800 Balance 1280 2330 3020 1020 Meds/Results Medications: Active Medications Generic Name Dose Route Start Last Admin Trade Name Freq PRN Reason Stop Dose Admin Hydrocodone Bitart/Acetaminophen 1 tab 01/08/21 12:52 01/10/21 19:01 Hydrocodone/Acetaminophen (*Crx) 5-325 Mg Tablet PO 1 tab Q4H PRN Administration Pain Rated 4-6 Amlodipine Besylate 10 mg 01/09/21 09:00 01/11/21 08:50 Amlodipine Besylate 5 Mg Tablet PO 10 mg QAM MINERVA Administration Dextrose 12.5 gm 01/07/21 21:50 Dextrose 50% 25 Gm/50 Ml Syringe IV PUSH PRN PRN Hypoglycemia Protocol Dicyclomine HCl 20 mg 01/07/21 16:56 Dicyclomine Hcl Inj 20 Mg/2 Ml Vial IM Q6H PRN Abdominal Cramping Glucagon 1 mg 01/07/21 21:50 Glucagon For Inj 1 Mg Vial IM PRN PRN Hypoglycemia Protocol Glucose 15 gm 01/07/21 21:50 Glucose Oral Gel 15 Gm Of Glucse In 37.5 Gm Tube PO PRN PRN Hypoglycemia Protocol Ceftriaxone Sodium/Dextrose 1 gm in 50 mls @ 100 mls/hr 01/08/21 14:00 01/11/21 13:18 Rocephin 1 Gm/D5w 50 Ml IVPB 100 mls/hr Q24H MINERVA Administration Dextrose 1,000 mls @ 100 mls/hr 01/07/21 21:50 Dextrose 5% 1,000 Ml IVPB PRN PRN Hypoglycemia Protocol Metronidazole 500 mg in 100 mls @ 100 mls/hr 01/08/21 21:00 01/11/21 09:51 Flagyl 500 Mg/Iso Soln 100 Ml IVPB Infused Q6H MINERVA Infusion Insulin Aspart 2 - 5 units 01/09/21 12:00 01/11/21 12:16 Insulin Aspart (*Bkc) 100 Units/Ml SUB-Q 2 units TIDWM MINERVA Administration Protocol Insulin Glargine 27 units 01/09/21 09:00 01/11/21 08:53 Insulin Glargine (*Bkc) 100 Units/Ml 0.25 units/kg (27 units) 27 units SUB-Q Administration DAILY MINERVA Losartan Potassium 100 mg 01/09/21 09:00 01/11/21 08:50 Losartan Potassium 100 Mg Tablet PO 100 mg DAILY MINERVA Administration Metoprolol Succinate 50 mg 01/09/21 09:00 01/11/21 08:50 Metoprolol Succinate Ext Rel 50 Mg Tabcr PO 50 mg QAM MINERVA Administration Ondansetron HCl 4 mg 01/07/21 16:56 01/08/21 08:55 Ondansetron Inj 4 Mg/2 Ml Vial IV PUSH 4 mg Q4H PRN Administration Nausea Pantoprazole Sodium 40 mg 01/08/21 09:00 01/11/21 10:22 Pantoprazole Sodium Iv 40 Mg Vial IV PUSH 40 mg QAM MINERVA Administration Radiology Results: ITS Impressions Upper Quadrant Ultrasound 01/07/21 15:46 IMPRESSION: 1. Acute cholecystitis. 2. Mildly dilated common duct. Labs Labs: Laboratory Results - last 24 hr 01/10/21 01/10/21 01/11/21 17:02 20:08 06:30 WBC 10.6 H RBC 4.14 L Hgb 12.4 Hct 38.2 MCV 92.3 MCH 30.0
[2021-01-11] MEDS: HYDROcodone/acetaminophen (*CRX) 5-325 MG TABLET 1 TAB PO (14:05)
[2021-01-11 17:11] VITALS: BP 129/41; PULSE 99; RESP 16; TEMP 36.7; O2SAT 90
--- NOTE | 2021-01-13 14:58 | PM.DS ---
DS: Admitting Diagnosis Admitting Diagnosis Admitting Diagnosis: Abdominal pain DS: Discharge Diagnosis Discharge Diagnosis (1) Acute cholecystitis: Code(s): K81.0 - Acute cholecystitis Status: Acute Assessment and Plan: Dr. Burk (general surgery) consulted and appreciate recommendations; patient underwent lap tigist 01/08/21 and I was told by the surgery team that she had some purulence drainage; acute suppurative and hydrops cholecystitis per note. Patient has been eating today without any issues. Still having some tenderness to her abdomen with getting up and moving around. She is not have any fevers, chills. Leukocytosis was improving. Surgery evaluated the patient and felt she was stable for discharge home and said they would discharge medications. (2) Sepsis: Qualifiers: Sepsis type: sepsis due to unspecified organism Sepsis acute organ dysfunction status: without acute organ dysfunction Qualified Code(s): A41.9 - Sepsis, unspecified organism Code(s): A41.9 - Sepsis, unspecified organism Status: Acute Assessment and Plan: SEPSIS criteria met with tachycardia and leukocytosis; gallbladder suspected source. Much improved today, stable vital signs and improving leukocytosis. (3) Diabetes mellitus: Qualifiers: Diabetes mellitus type: type 2 Diabetes mellitus fdc insulin use: with fdc use Diabetes mellitus complication status: without complication Qualified Code(s): E11.9 - Type 2 diabetes mellitus without complications; Z79.4 - shelter (current) use of insulin Code(s): E11.9 - Type 2 diabetes mellitus without complications Status: Chronic Assessment and Plan: BGL 150s-200s today. A1c 7.2% Continue home medications. (4) CKD (chronic kidney disease), stage III: Qualifiers: Chronic kidney disease stage 3 subtype: unspecified whether 3a or 3b Qualified Code(s): N18.30 - Chronic kidney disease, stage 3 unspecified Code(s): N18.3 - Chronic kidney disease, stage 3 (moderate) Status: Chronic Assessment and Plan: Cr 1.0, Stable. (5) Chronic GERD: Code(s): K21.9 - Gastro-esophageal reflux disease without esophagitis Status: Chronic Assessment and Plan: No acute issues (6) Essential hypertension: Code(s): I10 - Essential (primary) hypertension Status: Chronic Assessment and Plan: BP 129/41. Elevated during this stay likely 2/2 pain Monitor blood pressure. IV hydralazine with parameters as ordered. Resume home metoprolol and losartan when the patient is eating again. (7) Hyperlipidemia: Qualifiers: Hyperlipidemia type: unspecified Qualified Code(s): E78.5 - Hyperlipidemia, unspecified Code(s): E78.5 - Hyperlipidemia, unspecified Status: Chronic Assessment and Plan: Resume simvastatin when possible. (8) MARTÍN (obstructive sleep apnea): Code(s): G47.33 - Obstructive sleep apnea (adult) (pediatric) Status: Chronic Assessment and Plan: Continue home CPAP. (9) Cold sore: Code(s): B00.1 - Herpesviral vesicular dermatitis Status: Acute Assessment and Plan: Will continue home Valacyclovir 2000 mg PO Q12hrs as needed for cold sore. DS: Summary Hospital Course Reason for hospitalization: 65-year-old woman with a history of diabetes, who presented to the emergency room with abdominal pain was found to have acute cholecystitis. Patient was taken to surgery and had a lap cholecystectomy completed by Dr. Burk 01/08/21. During her admission
== END 2021-01-11 17:15 | disposition home or self-care (01) | DRG 854 ==
LOC: ANHED 17:07 → ANH3MEDSUR 18:06
PROVIDERS: Emergency Medicine; Nurse Practitioner; Physician Assistant; Surgery; Admitting Provider Internal Medicine; Emergency Provider Emergency Medicine; PCP Family Medicine; Visit Provider Family Medicine
PROC: 0FT44ZZ Resection of Gallbladder, Percutaneous Endoscopic Approach (ICD-10-PCS; CPT 47562; principal; 2021-01-08 15:15)
DX: A41.9 Sepsis, unspecified organism (principal); K80.00 Calculus of gallbladder with acute cholecystitis without obstruction; K82.1 Hydrops of gallbladder; E11.22 Type 2 diabetes mellitus with diabetic chronic kidney disease; I12.9 Hypertensive chronic kidney disease with stage 1 through stage 4 chronic kidney disease, or unspecified chronic kidney disease; N18.30 Chronic kidney disease, stage 3 unspecified; G47.33 Obstructive sleep apnea (adult) (pediatric); E78.5 Hyperlipidemia, unspecified; K21.9 Gastro-esophageal reflux disease without esophagitis; B00.1 Herpesviral vesicular dermatitis; Z28.21 Immunization not carried out because of patient refusal; Z79.4 Long term (current) use of insulin; Z88.0 Allergy status to penicillin; Z88.1 Allergy status to other antibiotic agents
CPT/HCPCS: 36415; 76705; 80048; 80053; 81001; 82948; 83036; 83690; 83735; 85025; 85610; 85730; 86850; 86900; 86901; 88304; 94660; 96361; 96365; 96366; 96367; 96375; 99285; A9270; C9113; G0378; J0131; J0330; J0690; J0696; J1100; J1815; J1940; J2270; J2370; J2405; J2704; J2710; J2765; J3010; J3475; J7030; J7120

== ENCOUNTER 2021-06-12 14:19 | Outpatient (CLI) | payer OTHER, SELFPAY ==
[2021-06-12 14:44] LABS: Hemoglobin 13.8 g/dL (12.0-15.0); Mean Corpuscular HGB Conc 32.9 g/dl (32-36); Mean Corpuscular Hemoglobin 29.2 pg (26-34); Mean Platelet Volume 11.1 fl (7.4-10.4); Platelet Count Result 226 k/mm3 (150-375); Red Blood Count 4.72 M/mm3 (4.2-5.4); Red Cell Distribution Width 13.8 % (11.5-14.5); White Blood Count 6.4 K/mm3 (4.5-10.0)
[2021-06-12 16:46] LABS: Iron 70 ug/dL (37-170)
[2021-06-12 16:48] LABS: Anion Gap 11 mmol/L (8-16); Blood Urea Nitrogen 25 mg/dL (7-17); Calcium 10.6 mg/dL (8.4-10.2); Carbon Dioxide 25 mmol/L (22-30); Chloride 104 mmol/L (98-107); Estimated Glomerular Filt Rate 56; Glucose 139 mg/dL (65-110); Potassium 4.7 mmol/L (3.4-5.0); Sodium 140 mmol/L (137-145)
[2021-06-12 16:55] LABS: Percent Iron Saturation 27 % (20-50)
== END 2021-06-12 14:20 | disposition home or self-care (01) ==
LOC: ANHLAB 14:27
PROVIDERS: PCP Family Medicine; Visit Provider Internal Medicine Hematology & Oncology
DX: D50.9 Iron deficiency anemia, unspecified (principal)
CPT/HCPCS: 36415; 80048; 82728; 83540; 83550; 85027

== ENCOUNTER 2022-07-18 14:07 | Outpatient (CLI) | payer OTHER, SELFPAY ==
[2022-07-18 14:28] LABS: Basophils Absolute Auto 0.1 K/mm3 (0.0-0.1); Basophils Percent Auto 0.7 % (0.2-1.2); Eosinophils Absolute Auto 0.3 K/mm3 (0-0.3); Eosinophils Percent Auto 4.1 % (0-4.4); Hematocrit 42.6 % (37.0-47.0); Hemoglobin 13.8 g/dL (12.0-15.0); Immature Granulocyte Absolute 0.02 K/mm3 (0.00-0.031); Immature Granulocyte Percent A 0.3 % (0-0.5); Lymphocytes Absolute Auto 1.95 K/mm3 (0.9-3.2); Lymphocytes Percent Auto 25.8 % (18.3-44.2); Mean Corpuscular HGB Conc 32.4 g/dl (32-36); Mean Corpuscular Volume 92.6 fl (80-100); Mean Platelet Volume 11.3 fl (7.4-10.4); Monocytes Absolute Auto 0.4 K/mm3 (0.1-0.6); Monocytes Percent Auto 5.4 % (2.6-8.5); Neutrophils Absolute Auto 4.8 K/mm3 (1.3-6.7); Neutrophils Percent Auto 63.7 % (45.5-73.1); Platelet Count Result 248 k/mm3 (150-375); Red Cell Distribution Width 13.5 % (11.5-14.5); White Blood Count 7.6 K/mm3 (4.5-10.0)
[2022-07-18 15:08] LABS: Alanine Aminotransferase 24 U/L (6-35); Albumin Level 4.5 g/dL (3.5-5.1); Alkaline Phosphatase 135 U/L (38-126); Anion Gap 12 mmol/L (8-16); Aspartate Amino Transferase 21 U/L (14-36); Bilirubin,Total 0.6 mg/dL (0.2-1.3); Blood Urea Nitrogen 21 mg/dL (7-17); Calcium 10.2 mg/dL (8.4-10.2); Carbon Dioxide 22 mmol/L (22-30); Chloride 107 mmol/L (98-107); Estimated Glomerular Filt Rate > 60; Glucose 111 mg/dL (65-110); Potassium 4.4 mmol/L (3.4-5.0); Sodium 141 mmol/L (137-145)
[2022-07-18 15:09] LABS: Iron 63 ug/dL (37-170)
[2022-07-18 15:18] LABS: Percent Iron Saturation 24 % (20-50)
== END 2022-07-18 14:08 | disposition home or self-care (01) ==
LOC: ANHLAB 14:08
PROVIDERS: PCP Family Medicine; Visit Provider Internal Medicine Hematology & Oncology
DX: D50.9 Iron deficiency anemia, unspecified (principal)
CPT/HCPCS: 36415; 80053; 82728; 83540; 83550; 85025

== ENCOUNTER 2022-10-11 13:14 | Outpatient (CLI) | payer OTHER, SELFPAY ==
[2022-10-11 13:30] LABS: Basophils Absolute Auto 0.1 K/mm3 (0.0-0.1); Basophils Percent Auto 0.7 % (0.2-1.2); Eosinophils Absolute Auto 0.3 K/mm3 (0-0.3); Eosinophils Percent Auto 3.8 % (0-4.4); Hematocrit 42.1 % (37.0-47.0); Hemoglobin 13.7 g/dL (12.0-15.0); Immature Granulocyte Absolute 0.02 K/mm3 (0.00-0.031); Immature Granulocyte Percent A 0.3 % (0-0.5); Lymphocytes Absolute Auto 1.97 K/mm3 (0.9-3.2); Lymphocytes Percent Auto 26.4 % (18.3-44.2); Mean Corpuscular HGB Conc 32.5 g/dl (32-36); Mean Corpuscular Hemoglobin 29.9 pg (26-34); Mean Corpuscular Volume 91.9 fl (80-100); Mean Platelet Volume 11.2 fl (7.4-10.4); Monocytes Absolute Auto 0.4 K/mm3 (0.1-0.6); Monocytes Percent Auto 4.8 % (2.6-8.5); Neutrophils Absolute Auto 4.8 K/mm3 (1.3-6.7); Platelet Count Result 231 k/mm3 (150-375); Red Blood Count 4.58 M/mm3 (4.2-5.4); Red Cell Distribution Width 13.8 % (11.5-14.5); White Blood Count 7.5 K/mm3 (4.5-10.0)
[2022-10-11 14:27] LABS: Appearance Urine Slightly Cloudy (Clear); Bilirubin Urine 1+ (Negative); Blood Urine Negative (Negative); Color Urine Yellow (Yellow); Glucose Urine UA Negative (Negative); Ketones Urine Trace mg/dL (Negative); Leukocyte Esterase Ur Negative LEU/UL (NEGATIVE); Nitrate Urine Positive (Negative); Protein Urine 1+ mg/dL (Negative); Specific Grav Ur 1.025 (1.001-1.035); Urobilinogen Urine 0.2 mg/dL (<2.0); pH Urine 5.5 (5.0-9.0)
[2022-10-11 14:28] LABS: Alanine Aminotransferase 21 U/L (6-35); Albumin Level 4.4 g/dL (3.5-5.1); Alkaline Phosphatase 129 U/L (38-126); Anion Gap 8 mmol/L (8-16); Aspartate Amino Transferase 25 U/L (14-36); Bilirubin,Total 0.8 mg/dL (0.2-1.3); Blood Urea Nitrogen 20 mg/dL (7-17); Calcium 10.3 mg/dL (8.4-10.2); Carbon Dioxide 26 mmol/L (22-30); Chloride 103 mmol/L (98-107); Cholesterol 146 mg/dL (0-200); Estimated Glomerular Filt Rate > 60; Glucose 87 mg/dL (65-110); HDL Direct 47 mg/dL; Potassium 4.3 mmol/L (3.4-5.0); Sodium 137 mmol/L (137-145); Triglycerides 115 mg/dL (<150)
[2022-10-11 14:33] LABS: Add Urine Microscopic? YES; Bacteria Urine Trace /hpf; Calcium Oxalate Crystals Urine Present /hpf; Mucus Urine Rare /lpf; Squamous Epithelial Cell Urine Few /hpf (Few)
[2022-10-11 14:39] LABS: LDL Cholesterol Direct 63 mg/dL
[2022-10-11 14:50] LABS: Creatinine Urine 273.1 mg/dL
[2022-10-11 14:51] LABS: MALB Creatinine Ratio 30.1 mg/g (0-30); Microalbumin Urine Random 82.3 mg/L (0-16.7)
[2022-10-11 16:20] LABS: Hemoglobin A1C 6.4 % (<5.7)
== END 2022-10-11 13:15 | disposition home or self-care (01) ==
LOC: ANHLAB 13:16
PROVIDERS: PCP Family Medicine; Visit Provider Nurse Practitioner Family
DX: D50.9 Iron deficiency anemia, unspecified (principal); E11.22 Type 2 diabetes mellitus with diabetic chronic kidney disease; K21.9 Gastro-esophageal reflux disease without esophagitis; E78.2 Mixed hyperlipidemia; E03.9 Hypothyroidism, unspecified; I12.9 Hypertensive chronic kidney disease with stage 1 through stage 4 chronic kidney disease, or unspecified chronic kidney disease; N18.30 Chronic kidney disease, stage 3 unspecified
CPT/HCPCS: 36415; 80053; 80061; 81001; 82043; 83036; 84443; 85025

== ENCOUNTER → 2022-12-06 13:41 | Outpatient (CLI) | payer OTHER, SELFPAY ==
--- NOTE | ~2022-12-06 | XR_ITS ---
EXAMINATION: XR knee RT min 4V DATE: 12/06/2022 14:05 INDICATION: Right knee pain TECHNIQUE: Weight bearing anteroposterior and [place], sunrise, and flexed lateral views of the rig ht knee were obtained COMPARISON: None. FINDINGS: Alignment is normal. No fracture. Joint spaces appear relatively preserved. There is chondrocalcinos is along the menisci and/or cartilage at the medial and lateral compartments. Minimal right knee join t effusion without layering lipohemarthrosis. Soft tissues are unremarkable. IMPRESSION: 1. Chondrocalcinosis in the medial and lateral compartments. 2. Minimal right knee joint effusion. Reviewed, dictated and finalized at location B. UTIVE ASSISTANT TO PRESIDENT
== END ==
PROVIDERS: PCP Family Medicine; Visit Provider Physician Assistant
DX: M25.461 Effusion, right knee (principal)
CPT/HCPCS: 73564

== ENCOUNTER 2022-12-09 09:37 | Outpatient (CLI) | payer OTHER, SELFPAY ==
--- NOTE | ~2022-12-09 | US_ITS ---
EXAMINATION: US venous doppler [facility] DATE: 12/09/2022 10:19 INDICATION: Right lower limb pain and swelling. TECHNIQUE: Grayscale ultrasound images without and with compression and Doppler ultrasound images of the bilateral lower extremity veins were obtained. COMPARISON: None. FINDINGS: The visualized portions of right common femoral vein, profunda (deep) femoral vein, femoral vein, pop liteal vein, peroneal veins, posterior tibial veins, and greater saphenous vein outflow are patent. The visualized portions of left common femoral vein, profunda femoral vein, femoral vein, popliteal v ein, peroneal veins, posterior tibial veins, and greater saphenous vein outflow are patent. IMPRESSION: 1. No deep venous thrombosis. Reviewed, dictated and finalized at location A. L DOCUMENT ASSISTANT
[2022-12-09 11:25] LABS: Uric Acid 3.2 mg/dL (2.5-7.5)
[2022-12-09 11:29] LABS: Rheumatoid Factor < 8.6 IU/ML (<12)
[2022-12-13 05:26] LABS: Anti Nuclear Antibody Titer 1:40 (Negative)
== END 2022-12-09 09:38 | disposition home or self-care (01) ==
LOC: ANHIMG 09:45
PROVIDERS: PCP Family Medicine; Visit Provider Physician Assistant
DX: R60.0 Localized edema (principal); M25.561 Pain in right knee; M11.261 Other chondrocalcinosis, right knee; M1A.00X0 Idiopathic chronic gout, unspecified site, without tophus (tophi)
CPT/HCPCS: 36415; 84550; 86038; 86039; 86430; 93970

== ENCOUNTER 2023-01-20 15:16 | Outpatient (CLI) | payer OTHER, SELFPAY ==
--- NOTE | ~2023-01-20 | MM_ITS ---
EXAMINATION: MM screening scott BI w pao HISTORY: Screening mammogram TECHNIQUE: Craniocaudal and mediolateral oblique 3-D tomosynthesis images were obtained and synthetic 2-D images were generated. CAD analysis was submitted and interpreted. COMPARISON: 11/16/2021 bilateral screening mammogram BREAST PARENCHYMAL COMPOSITION: The breasts are almost entirely fatty. FINDINGS: There is no evidence of suspicious mass, calcification, or architectural distortion to sugg est malignancy in either breast. There has been no suspicious interval change. IMPRESSION: 1. No mammographic evidence of malignancy. 2. Recommend routine screening mammography in one year. BI-RADS Category 1: Negative Reviewed, dictated and finalized at location A.
== END 2023-01-20 15:17 | disposition home or self-care (01) ==
LOC: ANHIMG 15:18
PROVIDERS: PCP Family Medicine; Visit Provider Physician Assistant
DX: Z12.31 Encounter for screening mammogram for malignant neoplasm of breast (principal)
CPT/HCPCS: 77063; 77067

== ENCOUNTER 2023-02-06 13:39 | Outpatient (CLI) | payer OTHER, SELFPAY ==
[2023-02-06 16:24] LABS: Alanine Aminotransferase 21 U/L (6-35); Albumin Level 4.4 g/dL (3.5-5.1); Alkaline Phosphatase 121 U/L (38-126); Anion Gap 9 mmol/L (8-16); Aspartate Amino Transferase 19 U/L (14-36); Blood Urea Nitrogen 27 mg/dL (7-17); Carbon Dioxide 23 mmol/L (22-30); Chloride 107 mmol/L (98-107); Estimated Glomerular Filt Rate 41; Glucose 157 mg/dL (65-110); Sodium 139 mmol/L (137-145)
[2023-02-06 16:44] LABS: Hemoglobin A1C 6.4 % (<5.7)
== END 2023-02-06 13:40 | disposition home or self-care (01) ==
LOC: ANHLAB 13:42
PROVIDERS: Nurse Practitioner Family; PCP Family Medicine; Visit Provider Internal Medicine Hematology & Oncology
DX: E11.9 Type 2 diabetes mellitus without complications (principal); I10 Essential (primary) hypertension
CPT/HCPCS: 36415; 80053; 83036

== ENCOUNTER 2023-02-25 13:40 | Outpatient (CLI) | payer OTHER, SELFPAY ==
[2023-02-25 15:05] LABS: Anion Gap 9 mmol/L (8-16); Blood Urea Nitrogen 22 mg/dL (7-17); Calcium 10.3 mg/dL (8.4-10.2); Carbon Dioxide 24 mmol/L (22-30); Chloride 107 mmol/L (98-107); Estimated Glomerular Filt Rate > 60; Glucose 133 mg/dL (65-110); Potassium 4.7 mmol/L (3.4-5.0); Sodium 140 mmol/L (137-145)
== END 2023-02-25 13:41 | disposition home or self-care (01) ==
LOC: ANHLAB 13:42
PROVIDERS: Physician Assistant; PCP Family Medicine; Visit Provider Internal Medicine Hematology & Oncology
DX: N17.9 Acute kidney failure, unspecified (principal); N18.30 Chronic kidney disease, stage 3 unspecified
CPT/HCPCS: 36415; 80048

== ENCOUNTER 2023-04-03 13:55 | Outpatient (CLI) | payer OTHER, SELFPAY ==
--- NOTE | ~2023-04-03 | XR_ITS ---
EXAMINATION: XR hand LT 2V DATE: 04/03/2023 14:07 INDICATION: Left hand pain. Pain in unspecified joint. TECHNIQUE: 2 views of left hand were obtained. COMPARISON: None. FINDINGS: Bone alignment is normal. No fracture. There is severe osteoarthritis of first carpometacar pal joint and mild osteoarthritis of some of the interphalangeal joints. There is moderate osteoarthr itis of second-fourth proximal interphalangeal joints. There are dystrophic calcifications in the wri st. IMPRESSION: 1. Polyarticular osteoarthritis. Reviewed, dictated and finalized at location E.
--- NOTE | ~2023-04-03 | XR_ITS ---
EXAMINATION: XR hand RT 2V DATE: 04/03/2023 14:07 INDICATION: Bilateral chronic posterior hand and medial wrist pain TECHNIQUE: 1. Posteroanterior and lateral views of the left hand were obtained. 2. Posteroanterior and lateral views of the right hand were obtained. COMPARISON: None. FINDINGS: Bone alignment is normal at the bilateral hands and wrists. No fractures. Chondrocalcinosis is seen a t the bilateral wrist joints greatest in the region of the right triangular fibrocartilage complex. P olyarticular osteoarthritis at the bilateral hands and wrists, severe at the left and moderate at the right first carpal metacarpal joints, severe at the right third proximal interphalangeal joint and m oderate severity at the majority the remaining bilateral interphalangeal joints and mild at the bilat eral distal radioulnar, triscaphe, metacarpophalangeal and remaining interphalangeal joints. No erosi ons to suggest inflammatory arthritis. IMPRESSION: 1. Typical distribution moderate to severe polyarticular osteoarthritis of both hands. 2. Chondrocalcinosis at the bilateral wrist joints. Reviewed, dictated and finalized at location A.
== END 2023-04-03 13:56 ==
LOC: MICIMG 13:57
PROVIDERS: PCP Family Medicine; Visit Provider Physician Assistant
DX: M19.042 Primary osteoarthritis, left hand (principal)
CPT/HCPCS: 73120

== ENCOUNTER 2023-06-20 13:00 | Outpatient (CLI) | payer OTHER, SELFPAY ==
[2023-06-20 15:37] LABS: Alanine Aminotransferase 21 U/L (6-35); Albumin Level 4.2 g/dL (3.5-5.1); Alkaline Phosphatase 114 U/L (38-126); Anion Gap 6 mmol/L (8-16); Aspartate Amino Transferase 21 U/L (14-36); Bilirubin,Total 0.9 mg/dL (0.2-1.3); Blood Urea Nitrogen 19 mg/dL (7-17); Carbon Dioxide 23 mmol/L (22-30); Chloride 108 mmol/L (98-107); Estimated Glomerular Filt Rate > 60; Glucose 107 mg/dL (65-110); Potassium 4.7 mmol/L (3.4-5.0); Sodium 137 mmol/L (137-145)
[2023-06-20 15:40] LABS: Hemoglobin A1C 6.4 % (<5.7)
== END 2023-06-20 13:01 | disposition home or self-care (01) ==
LOC: ANHLAB 13:04
PROVIDERS: PCP Family Medicine; Referring Provider Physician Assistant; Visit Provider Internal Medicine Hematology & Oncology
DX: E11.9 Type 2 diabetes mellitus without complications (principal); I10 Essential (primary) hypertension; D50.9 Iron deficiency anemia, unspecified; M11.20 Other chondrocalcinosis, unspecified site
CPT/HCPCS: 36415; 80053; 83036

== ENCOUNTER 2023-09-02 14:21 | Outpatient (CLI) | payer OTHER, SELFPAY ==
[2023-09-02 15:11] LABS: Basophils Absolute Auto 0.1 K/mm3 (0.0-0.1); Basophils Percent Auto 0.9 % (0.2-1.2); Eosinophils Absolute Auto 0.3 K/mm3 (0-0.3); Eosinophils Percent Auto 4.6 % (0-4.4); Hematocrit 38.6 % (37.0-47.0); Hemoglobin 12.3 g/dL (12.0-15.0); Immature Granulocyte Absolute 0.01 K/mm3 (0.00-0.031); Immature Granulocyte Percent A 0.2 % (0-0.5); Lymphocytes Absolute Auto 1.38 K/mm3 (0.9-3.2); Lymphocytes Percent Auto 23.6 % (18.3-44.2); Mean Corpuscular HGB Conc 31.9 g/dl (32-36); Mean Corpuscular Hemoglobin 30.1 pg (26-34); Mean Corpuscular Volume 94.4 fl (80-100); Mean Platelet Volume 12.1 fl (7.4-10.4); Monocytes Absolute Auto 0.3 K/mm3 (0.1-0.6); Neutrophils Absolute Auto 3.8 K/mm3 (1.3-6.7); Neutrophils Percent Auto 65.7 % (45.5-73.1); Platelet Count Result 197 k/mm3 (150-375); Red Blood Count 4.09 M/mm3 (4.2-5.4); Red Cell Distribution Width 13.1 % (11.5-14.5); White Blood Count 5.8 K/mm3 (4.5-10.0)
[2023-09-02 17:02] LABS: Iron 63 ug/dL (37-170)
[2023-09-02 17:06] LABS: Alanine Aminotransferase 25 U/L (6-35); Albumin Level 4.3 g/dL (3.5-5.1); Alkaline Phosphatase 108 U/L (38-126); Anion Gap 9 mmol/L (8-16); Aspartate Amino Transferase 26 U/L (14-36); Bilirubin,Total 0.9 mg/dL (0.2-1.3); Blood Urea Nitrogen 23 mg/dL (7-17); Calcium 10.1 mg/dL (8.4-10.2); Carbon Dioxide 20 mmol/L (22-30); Chloride 109 mmol/L (98-107); Estimated Glomerular Filt Rate > 60; Glucose 105 mg/dL (65-110); Potassium 4.3 mmol/L (3.4-5.0); Sodium 138 mmol/L (137-145)
[2023-09-02 17:24] LABS: Percent Iron Saturation 24 % (20-50)
[2023-09-02 18:12] LABS: Folic Acid 8.2 ng/mL (2.76->20)
== END 2023-09-02 14:22 | disposition home or self-care (01) ==
PROVIDERS: PCP Family Medicine; Visit Provider Internal Medicine Hematology & Oncology
DX: D50.9 Iron deficiency anemia, unspecified (principal)
CPT/HCPCS: 36415; 80053; 82607; 82728; 82746; 83540; 83550; 85025

== ENCOUNTER 2023-10-31 16:32 | Outpatient (CLI) | payer OTHER, SELFPAY | END 2023-10-31 16:33 | disposition home or self-care (01) | LOC: ANHLAB 16:34 | PROVIDERS: PCP Family Medicine; Visit Provider Physician Assistant | DX: R32 Unspecified urinary incontinence (principal); N39.0 Urinary tract infection, site not specified | CPT/HCPCS: 87077; 87086; 87186 ==

== ENCOUNTER 2023-12-17 11:17 | Outpatient (CLI) | payer OTHER, SELFPAY ==
[2023-12-17 11:36] LABS: Basophils Absolute Auto 0.1 K/mm3 (0.0-0.1); Basophils Percent Auto 0.7 % (0.2-1.2); Eosinophils Absolute Auto 0.3 K/mm3 (0-0.3); Hematocrit 41.5 % (37.0-47.0); Hemoglobin 13.8 g/dL (12.0-15.0); Immature Granulocyte Absolute 0.02 K/mm3 (0.00-0.031); Immature Granulocyte Percent A 0.3 % (0-0.5); Lymphocytes Absolute Auto 1.58 K/mm3 (0.9-3.2); Lymphocytes Percent Auto 23.3 % (18.3-44.2); Mean Corpuscular HGB Conc 33.3 g/dl (32-36); Mean Corpuscular Hemoglobin 30.3 pg (26-34); Mean Corpuscular Volume 91.2 fl (80-100); Mean Platelet Volume 10.9 fl (7.4-10.4); Monocytes Absolute Auto 0.3 K/mm3 (0.1-0.6); Monocytes Percent Auto 4.9 % (2.6-8.5); Neutrophils Absolute Auto 4.5 K/mm3 (1.3-6.7); Neutrophils Percent Auto 65.8 % (45.5-73.1); Platelet Count Result 235 k/mm3 (150-375); Red Blood Count 4.55 M/mm3 (4.2-5.4); Red Cell Distribution Width 12.7 % (11.5-14.5); White Blood Count 6.8 K/mm3 (4.5-10.0)
[2023-12-17 12:45] LABS: Iron 116 ug/dL (37-170)
[2023-12-17 12:55] LABS: Percent Iron Saturation 46 % (20-50)
[2023-12-17 13:58] LABS: Folic Acid 5.8 ng/mL (2.76->20)
== END 2023-12-17 11:18 | disposition home or self-care (01) ==
LOC: ANHLAB 11:19
PROVIDERS: PCP Family Medicine; Visit Provider Internal Medicine Hematology & Oncology
DX: D64.9 Anemia, unspecified (principal)
CPT/HCPCS: 36415; 82607; 82728; 82746; 83540; 83550; 85025

== ENCOUNTER 2024-02-17 12:09 | Outpatient (CLI) | payer OTHER, SELFPAY ==
[2024-02-17 13:17] LABS: Alanine Aminotransferase 18 U/L (6-35); Albumin Level 4.4 g/dL (3.5-5.1); Alkaline Phosphatase 116 U/L (38-126); Anion Gap 7 mmol/L (4-12); Aspartate Amino Transferase 19 U/L (14-36); Bilirubin,Total 0.9 mg/dL (0.2-1.3); Blood Urea Nitrogen 29 mg/dL (7-17); Calcium 10.1 mg/dL (8.4-10.2); Carbon Dioxide 23 mmol/L (22-30); Chloride 107 mmol/L (98-107); Estimated Glomerular Filt Rate > 60; Glucose 103 mg/dL (65-110); Potassium 4.7 mmol/L (3.4-5.0); Sodium 137 mmol/L (137-145)
[2024-02-17 13:42] LABS: Hemoglobin A1C 6.3 % (<5.7)
== END 2024-02-17 12:10 | disposition home or self-care (01) ==
PROVIDERS: PCP Family Medicine; Visit Provider Physician Assistant
DX: E11.22 Type 2 diabetes mellitus with diabetic chronic kidney disease (principal); I12.9 Hypertensive chronic kidney disease with stage 1 through stage 4 chronic kidney disease, or unspecified chronic kidney disease; N18.30 Chronic kidney disease, stage 3 unspecified
CPT/HCPCS: 36415; 80053; 83036

== ENCOUNTER 2024-12-01 11:36 | Emergency (ER) | payer OTHER, SELFPAY ==
--- NOTE | ~2024-12-01 | CT_ITS ---
Non-contrast CT scan of the Abdomen and Pelvis Clinical indication: Left flank pain Technique: 2.5 mm axial scans were obtained through the abdomen and pelvis without intravenous or or al contrast. Dose reduction technique was used on this scan by utilizing automated exposure control a nd iterative reconstruction technique. The dose-length product (DLP) was 664.52 mGy-cm. Findings: Images through the lung bases reveal no abnormalities. There is a 4 mm stone at the mid to distal left ureter (axial image 121), with mild left hydrouretero nephrosis to this level. No right renal or ureteral stone. No right hydronephrosis. The liver, spleen, pancreas, and adrenals appear normal. Cholecystectomy clips are present. There are mild atherosclerotic calcifications of the aorta. . There is no evidence of bowel obstruction. Images through the pelvis were performed. There is no evidence of ascites or lymphadenopathy. Urinary bladder unremarkable. No pelvic mass seen. No ascites. Impression: 4 mm mid to distal left ureteral stone with mild left hydroureteronephrosis to this level. Reviewed, dictated and finalized at [facility]. [employer] Impression: 4 mm mid to distal left ureteral stone with mild left hydroureteronephrosis to this level.
[2024-12-01 11:53] VITALS: BP 132/65; PULSE 70; RESP 16; TEMP 36.4; O2SAT 99
[2024-12-01 12:26] LABS: Add Urine Microscopic? YES; Appearance Urine Turbid (Clear); Bacteria Urine 4+ /hpf; Bilirubin Urine Negative (Negative); Blood Urine 3+ (Negative); Color Urine Dark Yellow (Yellow); Glucose Urine UA Negative (Negative); Ketones Urine Trace mg/dL (Negative); Leukocyte Esterase Ur 2+ LEU/UL (Negative); Need Manual Microscopic Reviewed; Nitrate Urine Positive (Negative); Non Pathogenic Casts >20; Protein Urine 1+ mg/dL (Negative); RBC Urine >100 /hpf (0-2); Specific Grav Ur 1.023 (1.001-1.035); Squamous Epithelial Cell Urine Moderate /hpf (Few); WBC Clumps Urine Present /HPF; WBC Urine 51-100 /hpf (0-3)
[2024-12-01 12:52] LABS: Alanine Aminotransferase 16 U/L (6-35); Albumin Level 4.2 g/dL (3.5-5.1); Alkaline Phosphatase 81 U/L (38-126); Anion Gap 12 mmol/L (4-12); Aspartate Amino Transferase 18 U/L (14-36); Basophils Percent Auto 0.5 % (0.2-1.2); Bilirubin,Total 1.6 mg/dL (0.2-1.3); Blood Urea Nitrogen 27 mg/dL (7-17); Carbon Dioxide 24 mmol/L (22-30); Chloride 104 mmol/L (98-107); Eosinophils Absolute Auto 0.1 K/mm3 (0-0.3); Eosinophils Percent Auto 1.1 % (0-4.4); Estimated CRCL calculation 45 ml/min; Estimated Glomerular Filt Rate 47; Glucose 137 mg/dL (65-110); Hematocrit 42.7 % (37.0-47.0); Hemoglobin 14.3 g/dL (12.0-15.0); Immature Granulocyte Absolute 0.02 K/mm3 (0.00-0.031); Immature Granulocyte Percent A 0.3 % (0-0.5); Lymphocytes Absolute Auto 1.54 K/mm3 (0.9-3.2); Lymphocytes Percent Auto 20.6 % (18.3-44.2); Mean Corpuscular HGB Conc 33.5 g/dl (32-36); Mean Corpuscular Hemoglobin 30.9 pg (26-34); Mean Corpuscular Volume 92.2 fl (80-100); Mean Platelet Volume 11.9 fl (7.4-10.4); Monocytes Absolute Auto 0.6 K/mm3 (0.1-0.6); Monocytes Percent Auto 8.1 % (2.6-8.5); Neutrophils Absolute Auto 5.2 K/mm3 (1.3-6.7); Neutrophils Percent Auto 69.4 % (45.5-73.1); Platelet Count Result 219 k/mm3 (150-375); Red Blood Count 4.63 M/mm3 (4.2-5.4); Red Cell Distribution Width 12.9 % (11.5-14.5); Sodium 140 mmol/L (137-145); White Blood Count 7.5 K/mm3 (4.5-10.0)
--- NOTE | 2024-12-01 13:12 | ED_ITS ---
HPI - General Adult General Chief complaint: Urogenital-Female Stated complaint: Blood in urine x 2 days, back pain Time Seen by Provider: 12/01/24 12:01 History of Present Illness HPI narrative: Patient is a 69-year-old female who presents emergency department chief complaint of bloody urine and left flank pain. Patient reports he has had some nausea and vomiting as well with this. Patient denies fever denies body aches or chills. Patient reports her pain is controlled at this point. Related Data Home Medications ?Medication ?Instructions ?Recorded ?Confirmed ?Last Taken ?Type ascorbic acid (vitamin C) 100 mg 100 mg PO DAILY 01/07/21 09/03/24 01/07/21 12:00 History tablet ferrous sulfate 325 mg (65 mg 650 mg PO DAILY 01/07/21 09/03/24 01/07/21 12:00 History iron) tablet (Iron (ferrous sulfate)) vitamin B complex (B 1 tablet PO DAILY 01/07/21 09/03/24 01/07/21 12:00 History Complex-Vitamin B12 tablet) Allergies Allergy/AdvReac Type Severity Reaction Status Date / Time ciprofloxacin Allergy Intermediate Unknown Verified 12/01/24 12:30 Penicillins Allergy Intermediate Hives Verified 12/01/24 12:30 Review of Systems 2 Review of Systems: A 10 system review of systems was completed on the patient and is negative except for what is stated in the HPI. Nursing and ancillary documentation was reviewed. [facility], LAT[facility] Past Medical History Medical History Diabetes mellitus Urinary incontinence Chronic thumb pain, bilateral Wellness examination Foot callus Incontinence of feces with fecal urgency CKD (chronic kidney disease), stage III Surgical History Surgical History History of section, classical Family History Family History Mother Family history of primary malignant neoplasm of liver Diabetes mellitus Father Family history of coronary artery disease Malignant neoplasm of prostate Sibling Family history of malignant neoplasm of breast in first degree relative Social History Social History Smoking status: Never smoker Second hand tobacco smoke exposure: No Alcohol intake: never Substance use: never Substance use type: does not use Living arrangements: with family Occupation/Education: retired Gender identity (if verbalized by the patient): Female Sexual Orientation (if Verbalized by the Patient): Straight or Heterosexual Spiritual care concerns: No Exam 2 Narrative: GENERAL: Well-appearing, well-nourished, and in no acute distress. HEAD: Normocephalic, atraumatic. EYES: PERRLA and EOMI. ENT: Nares clear, no rhinorrhea or epistaxis. Mucous membranes moist. NECK: Supple. CHEST: Clear to auscultation. No respiratory distress. HEART: Regular rate and rhythm. No murmur heard. Normal peripheral pulses. ABDOMEN: Soft, nontender, nondistended, normal active bowel sounds. EXTREMITIES: Normal range of motion. No edema. SKIN: Warm, dry, no rash. NEURO: No focal deficits. Alert and oriented x3. PSYCH: Normal mood and affect. Course Vital Signs Vital signs: Vital Signs Temperature 36.4 C 12/01/24 11:53 Pulse Rate 70 12/01/24 11:53 Respiratory Rate 16 12/01/24 11:53 Blood Pressure 132/65 12/01/24 11:53 Pulse Oximetry 99 12/01/24 11:53 Oxygen Delivery Room Air 12/01/24 11:53 Temperature 36.4 C 12/01/24 11:53 Pulse Rate 70 12/01/24 11:53 Respiratory Rate 16 12/01/24 11:53 Blood Pressure 132/65 12/01/24 11:53 Pulse Oximetry 99 12/01/24 11:53 Oxygen Delivery Room Air 12/01/24 11:53 Medical Decision Making [facility] Narrative Medical decision making narrative: Differential diagnosis includes UTI, pyelonephritis, ureterolithiasis, abdominal pain CT scan showed evidence of 4 mm distal stone Urinalysis showed evidence of UTI. The case was discussed with Dr. Gupta who recommended oral antibiotics and outpatient follow-up with Urology. Vital Signs Vital Signs: Vital Signs Temperature 36.4 C 12/01/24 11:53 Pulse Rate 70 12/01/24 11:53 Respiratory Rate 16 12/01/24 11:53 Blood Pressure 132/65 12/01/24 11:53 Pulse Oximetry 99 12/01/24 11:53 Oxygen Delivery Room Air 12/01/24 11:53 Temperature 36.4 C 12/01/24 11:53 Pulse Rate 70 12/01/24 11:53 Respiratory Rate 16 12/01/24 11:53 Blood Pressure 132/65 12/01/24 11:53 Pulse Oximetry 99 12/01/24 11:53 Oxygen Delivery Room Air 12/01/24 11:53 Lab Data 12/01/24 12:35 12/01/24 12:35 Labs: Lab Results 12/01/24 12/01/24 Range/Units 12:08 12:35 WBC 7.5 (4.5-10.0) K/mm3 RBC 4.63 (4.2-5.4) M/mm3 Hgb 14.3 (12.0-15.0) g/dL Hct 42.7 (37.0-47.0) % MCV 92.2 (80-100) fl MCH 30.9 (26-34) pg MCHC 33.5 (32-36) g/dl RDW 12.9 (11.5-14.5) % Plt Count 219 (150-375) k/mm3 MPV 11.9 H (7.4-10.4) fl Immature Gran % (Auto) 0.3 (0-0.5) % Neut % (Auto) 69.4 (45.5-73.1) % Lymph % (Auto) 20.6 (18.3-44.2) % [place] % (Auto) 8.1 (2.6-8.5) % Eos % (Auto) 1.1 (0-4.4) % Baso % (Auto) 0.5 (0.2-1.2) % Lymph # (Auto) 1.54 (0.9-3.2) K/mm3 [place] # (Auto) 0.6 (0.1-0.6) K/mm3 Eos # (Auto) 0.1 (0-0.3) K/mm3 Baso # (Auto) 0.0 (0.0-0.1) K/mm3 Abs Immat Gran (auto) 0.02 (0.00-0.031) K/mm3 Absolute Neuts (auto) 5.2 (1.3-6.7) K/mm3 Absolute Nucleated RBC 0.000 (0.0-0.012) K/mm3 Nucleated RBC % 0.0 (0.0-0.2) % Sodium 140 (137-145) mmol/L Potassium 4.0 (3.4-5.0) mmol/L Chloride 104 (98-107) mmol/L Carbon Dioxide 24 (22-30) mmol/L Anion Gap 12 (4-12) mmol/L BUN 27 H (7-17) mg/dL Creatinine 1.14 H (0.7-1.0) mg/dL Estim Creat Clear Calc 45 ml/min Estimated GFR 47 L (59 - ) Glucose 137 H (65-110) mg/dL Calcium 10.0 (8.4-10.2) mg/dL Total Bilirubin 1.6 H (0.2-1.3) mg/dL AST 18 (14-36) U/L ALT 16 (6-35) U/L Alkaline Phosphatase 81 (38-126) U/L Total Protein 7.0 (6.3-8.2) g/dL Albumin 4.2 (3.5-5.1) g/dL Urine Color Dark yellow (Yellow) Urine Appearance Turbid H (Clear) Urine pH 5.0 (5.0-9.0) Ur Specific [place] 1.023 (1.001-1.035) Urine Protein 1+ H (Negative) mg/dL Urine Glucose (UA) Negative (Negative) mg/dL Urine Ketones Trace H (Negative) mg/dL Ur Blood (Man) 3+ H (Negative) Urine Nitrate Positive H (Negative) Urine Bilirubin Negative (Negative) Urine Urobilinogen 1.0 (<2.0) mg/dL Add Ur Microanalysis Reviewed Leukocyte Esterase Rfl 2+ H (Negative) ASYA/UL Urine RBC >100 H (0-2) /hpf Urine WBC 51-100 H (0-3) /hpf Urine WBC Clumps Present H (None) /HPF Ur Squamous Epith Cells Moderate (Few) /hpf Urine Bacteria 4+ H /hpf Urine Casts >20 Discharge Plan Discharge Clinical Impression: Ureterolithiasis, Abnormal urinalysis Patient Disposition: Home, Self-Care Condition: Stable Instructions: Antibiotic Form, Kidney Stones (ED), Urinary Tract Infection in Women (ED) Additional Instructions: If he develop fever severe pain inability to fluids down chills body aches or worsening symptoms please return to the emergency department immediately. Patient Language: Hebrew Prescriptions: New tamsulosin [Flomax] 0.4 mg capsule 0.4 mg PO DAILY Qty: 20 0RF ondansetron 4 mg tablet,disintegrating 4 mg PO Q8H PRN (Reason: nausea and vomiting) Qty: 20 0RF cephalexin 500 mg capsule 500 mg PO Q12H 7 Days Qty: 14 0RF hydrocodone-acetaminophen 5-325 mg tablet 1 tablet PO Q6H PRN (Reason: pain) 3 Days Qty: 12 0RF No Action insulin glargine U-300 conc [Toujeo Max U-300 SoloStar] 300 unit/mL (3 mL) insulin pen 12 unit subcut DAILY Qty: 6 3RF hydrochlorothiazide 12.5 mg tablet 12.5 mg PO DAILY Qty: 90 3RF ferrous sulfate [Iron (ferrous sulfate)] 325 mg (65 mg iron) Tablet 650 mg PO DAILY ascorbic acid (vitamin C) 100 mg Tablet 100 mg PO DAILY vitamin B complex [B Complex-Vitamin B12] Tablet 1 tablet PO DAILY allopurinol 300 mg tablet 300 mg PO DAILY Qty: 90 2RF (DME) Contour Next Test Strips Strip See Rx Instructions .ROUTE .COMPLEX Qty: 300 3RF Dose Instruction: DIRECTED TO TEST BLOOD SUGAR 3 TIMES A DAY Rx Instructions: DIRECTED TO TEST BLOOD SUGAR 3 TIMES A DAY valacyclovir [Valtrex] 1 gram tablet 2,000 mg PO Q12H PRN (Reason: cold sores) Qty: 28 3RF metformin 500 mg tablet See Rx Instructions .ROUTE .COMPLEX Qty: 270 2RF Dose Instruction: TAKE 1 TABLET (500 MG) BY MOUTH IN THE MORNING AND 2 TABLETS (1000 MG) BY MOUTH IN THE EVENING Rx Instructions: TAKE 1 TABLET (500 MG) BY MOUTH IN THE MORNING AND 2 TABLETS (1000 MG) BY MOUTH IN THE EVENING losartan [Cozaar] 100 mg tablet 100 mg PO DAILY Qty: 90 2RF sertraline [Zoloft] 50 mg tablet 50 mg PO DAILY Qty: 90 2RF omeprazole 20 mg capsule,delayed release(DR/EC) 20 mg PO DAILY Qty: 90 2RF simvastatin 20 mg tablet 20 mg PO HS Qty: 90 2RF metoprolol succinate 50 mg tablet extended release 24 hr 50 mg PO DAILY Qty: 90 2RF (DME) pen needle, diabetic [BD Ultra-Fine Orig Pen Needle] 29 gauge x 1/2 needle See Rx Instructions .ROUTE .COMPLEX Qty: 100 2RF Dose Instruction: INJECT WEEKLY DIRECTED Rx Instructions: INJECT WEEKLY DIRECTED semaglutide 2 mg/dose (8 mg/3 mL) pen injector 2 mg subcut WEEKLY Qty: 3 2RF amlodipine 10 mg tablet 10 mg PO DAILY Qty: 90 2RF Follow-up/Referrals: Christian Perea MD [Primary Care Provider] - Ventura Gupta MD [Physician] - (Please follow-up in 1 week please call the office to schedule an appointment) Time of Disposition: 13:18
[2024-12-01] MEDS: TAMSULOSIN HCL 0.4 MG CAPSULE PO (13:20)
== END 2024-12-01 13:41 | disposition home or self-care (01) ==
PROVIDERS: Emergency Provider Emergency Medicine; PCP Family Medicine
DX: N39.0 Urinary tract infection, site not specified (principal); N13.2 Hydronephrosis with renal and ureteral calculous obstruction; E11.22 Type 2 diabetes mellitus with diabetic chronic kidney disease; N18.30 Chronic kidney disease, stage 3 unspecified; R32 Unspecified urinary incontinence; Z79.4 Long term (current) use of insulin; Z79.84 Long term (current) use of oral hypoglycemic drugs; Z79.899 Other long term (current) drug therapy; Z79.85 Long-term (current) use of injectable non-insulin antidiabetic drugs
CPT/HCPCS: 36415; 74176; 80053; 81001; 85025; 87077; 87086; 87186; 96365; 99284; A9270; J0696

== ENCOUNTER 2025-01-25 13:54 | Outpatient (CLI) | payer OTHER, SELFPAY ==
--- NOTE | ~2025-01-25 | XR_ITS ---
XR abdomen/kub 1V Ordering provider: Bruno Gupta MD History: . lt ureteral stone . Comparison: January 15, 2018 FINDINGS: BOWEL: Nonobstructive bowel gas pattern. ORGANOMEGALY: None. SIGNIFICANT PATHOLOGIC CALCIFICATIONS: Small calcific shadow seen in the left renal area suggestive o f a stone. Calcification seen on the left side projected over the iliac bone which is unchanged from previous ex amination. OTHER: No free air is seen under the diaphragm. Bilateral severe hip osteoarthritic changes. Pubic symphysitis. Degenerative spine IMPRESSION: NO ACUTE ABDOMINAL FINDINGS. Highly suggestive left kidney stone measuring [address] is advised for confirmation. Calcification projected over the left iliac bone unchanged from previous examination. Reviewed, dictated and finalized at location A. IMPRESSION: NO ACUTE ABDOMINAL FINDINGS. Highly suggestive left kidney stone measuring [address] is advised f or confirmation. Calcification projected over the left iliac bone unchanged from previous examin ation.
--- OUTSIDE RECORDS SUMMARY | 2025-01-25 15:42 | XMS_ITS | Clinical Summary ---
Author Organization [facility] Address [address] [place] [address] Care Team Providers Care Critical Care Transport Nurse Name Role Phone Christian Perea MD Primary Care Provider [phone] Allergies Active Allergy Reactions Criticality Noted Date Comments Ciprofloxacin Hives High 11/19/2017 Penicillins Hives High 11/19/2017 Allergic to all cillin Medications insulin glargine (LANTUS) 100 unit/mL pen syringe Inject 22 Units by subcutaneous injection daily at bedtime. Active metFORMIN (GLUCOPHAGE) 1,000 mg tablet Take 500 mg by mouth daily. Active metoprolol tartrate (LOPRESSOR) 25 mg tablet Take 25 mg by mouth 2 times daily. Active losartan-hydroC HLOROthiazide (HYZAAR) 100-25 mg tablet Take 1 Tablet by mouth daily. Active sertraline (ZOLOFT) 25 mg tablet Take 25 mg by mouth daily. Active ferrous sulfate 325 mg (65 mg iron) tablet Take 325 mg by mouth daily. Active simvastatin (ZOCOR) 40 mg tablet Take 40 mg by mouth late in the day. Active allopurinol (ZYLOPRIM) 100 mg tablet Take 100 mg by mouth daily. Active amLODIPine (NORVASC) 10 mg tablet Take 10 mg by mouth daily. Active metoprolol succinate (TOPROL XL) 50 mg Extended Release 24 hour tablet 9 Active losartan (COZAAR) 100 mg tablet 9 Active FREESTYLE LITE STRIPS Strip 9 Active omeprazole (PriLOSEC) 10 mg Capsule, Delayed Release(E.C.) 9 Active flu vacc qs 2018-, 6 mos up, (AFLURIA QUAD ,6MO UP, IM) 9 Active Lactobac no.41/Bifidobac t no.7 (PROBIOTIC-10 ORAL) Take by mouth. Activ e diclofenac sodium (VOLTAREN) 75 mg Tablet, Delayed Release (E.C.) Take 75 mg by mouth 2 times daily. 3 Active Active Problems Problem Noted Date Diagnosed Date Iron deficiency anemia 11/19/2017 Encounters Date Type Department Care Team Description 12/01/2024 External Device Data [facility] ABSTRACTION Provider, Abstract 12/01/2024 External Device Data [facility]STRACTION Provider, Abstract from Last 3 Months Family History Medical History Relation Name Comments Heart Disease Father Cancer Mother Diabetes Mother Cancer Sister 1 Relation Name Status Comments Father Alive Mother Sister 1 Alive Sister 2 Alive Sister 3 Alive Sister 4 Alive Social History Tobacco Use Types Packs/Day Years Used Date Smoking Tobacco: Never Smokeless Tobacco: Never Tobacco Cessation:Counseling Given: Not Answered Alcohol Use Standard Drinks/Week Comments Yes 2 (1 standard drink = 0.6 oz pur e alcohol) Occasional Comments No Sex and Gender Information Value Date Recorded Sex Assigned at Not on file Legal Sex Female 11:42 AM DIRECT CASTING OPERATOR Gender Identity Not on file Sexual Orientation Not on file Last Filed Vital Signs Vital Sign Reading Time Taken Comments Blood Pressure 140/76 12/19/2023 11:46 AM DIRECT CASTING OPERATOR Pulse 86 12/19/2023 11:46 AM DIRECT CASTING OPERATOR Temperature 36.3 C (97.4 F) 12/19/2023 11:46 AM DIRECT CASTING OPERATOR Respiratory Rate 15 12/19/2023 11:46 AM DIRECT CASTING OPERATOR Oxygen Saturation 97% 12/19/2023 11:46 AM DIRECT CASTING OPERATOR Inhaled Oxygen Concentration - - Weight 94.6 kg (208 lb 9.6 oz) 12/19/2023 11:46 AM DIRECT CASTING OPERATOR Height 172.7 cm (5' 8 ) 07/22/2022 2:50 PM CDT Body Mass Index 31.72 07/22/2022 2:50 PM CDT Plan of Treatment Health Maintenance Due Date Last Done Comments DTAP/TDAP/TD VACCINES (1 - Tdap) 1974 BREAST CANCER SCREENING 1995 COLORECTAL SCREENING 2000 Colorectal Cancer Screening 2000 FIT-DNA Q 3 years 2000 FIT/FOBT Q 1 year 2000 Flex Sig/CT Colonography Q 5 years 2000 PNEUMOCOCCAL VACCINE 50+ YEARS (1 of 1 - PCV) 10/30/20 05 ZOSTER VACCINE (1 of 2) 2005 OSTEOPOROSIS SCREENING 2020 INFLUENZA VACCINE (#1) 2024 RSV VACCINE (60+ or ) (1 - 1-dose 75+ series) 2030 Insurance [facility] Address: [address] [place] [address] [employer] Care Teams Critical Care Transport Nurse Relationship Specialty Start Date End Date Christian Perea MD [address] [facility] [address] [place] [address] PCP - General Family Practice 11/19/17
--- OUTSIDE RECORDS SUMMARY | 2025-01-25 15:43 | XMS_ITS | Clinical Summary ---
Author Organization [facility] Address [address] [place] [id number] Care Team Providers Care Claim Representative Name Role Phone Christian Perea MD Primary Care Provider [phone] Social History Tobacco Use Types Packs/Day Years Used Date Smoking Tobacco: Never Assessed Comments Unknown Sex and Gender Information Value Date Recorded Sex Assigned at Not on file Legal Sex Female 7:14 PM CDT Gender Identity Not on file Sexual Orientation Not on file Last Filed Vital Signs Vital Sign Reading Time Taken Comments Blood Pressure 138/80 04/29/2016 8:18 AM CDT Pulse 80 04/29/2016 8:18 AM CDT Temperature - - Respiratory Rate - - Oxygen Saturation - - Inhaled Oxygen Concentration - - Weight 113.4 kg (250 lb) 04/29/2016 8:18 AM CDT Height 167.6 cm (5' 6 ) 04/29/2016 8:18 AM CDT Body Mass Index 40.35 04/29/2016 8:18 AM CDT Plan of Treatment Health Maintenance Due Date Last Done Comments Colorectal Cancer Screening Colonoscopy (10 Years) 1955 Hepatitis C 1973 DTaP, Tdap and Td Vaccines ( 1 - Tdap) 1974 Mammogram Screening 1995 Zoster Vaccines (1 of 2) 2005 Dexa Scan (General) 2020 Pneumococcal Vaccine: 65+ Years (1 of 1 - PCV) 2020 COVID-19 Vaccine ( - 2023-2 5 season) 2024 Influenza Adult (#1) 2024 08/23/2015, 08/31/2014 RSV Immunization or 60+ Years (1 - 1-dose 75+ series) 2030 Meningococcal B Vaccine Aged Out No l onger eligible based on patient's age to complete this topic Meningococcal Vaccine Aged Out No satish ruben eligible based on patient's age to complete this topic RSV Immunizations Under 20 Months Aged Out No longer eligible b ased on patient's age to complete this topic Care Teams Claim Representative Relationship Specialty Start Date End Date Christian Perea MD [address] [place], [place] [id number] PCP - General 01/30/17
--- OUTSIDE RECORDS SUMMARY | 2025-01-25 15:44 | XMS_ITS | Clinical Summary ---
Author Organization [facility] [address] [facility] Address [address] [place] [address] Care Team Providers Care Curing Press Maintainer Name Role Phone Christian Perea MD Primary Care Provider Brandon Rivera MD Unavailable [phone] Allergies Active Allergy Reactions Criticality Noted Date Comments Ciprofloxacin Hives High 11/19/2017 Penicillins Hives High 11/19/2017 Allergic to all cillin Medications diclofenac DR (VOLTAREN) 75 mg EC tablet Take 1 tablet (75 mg total) by mouth 2 (two) times a day 180 tablet 1 07/23/2024 Active hydroCHLOROthiaz brayan 12.5 mg tablet Take 1 tablet (12.5 mg total) by mouth daily 07/16/2024 Active colchicine (COLCRYS) 0.6 mg tablet Take 1 tablet (0.6 mg total) by mouth daily 90 tablet 1 10/26/2024 5 Active Active Problems Problem Noted Date Diagnosed Date Primary osteoarthritis involving multiple joints 07/29/2023 Assessment & Plan (08/02/2024 2:21 PM CDT): As above. Also discussed consideration for R 1st CMC or R knee injection which she declined previously. Assessment & Plan (01/27/2024 2:30 PM CDT): As above. Also discussed consideration for R 1st CMC or R knee injection which she declined previously. Assessment & Plan (07/29/2023 3:54 PM CDT): As above. Also discussed consideration for R 1st CMC or R knee injection which she declines at present but will call if she feels this is needed. Calcium pyrophosphate deposition disease (CPPD) 03/27/2023 Overview (04/11/2023): Labs 03/27/2023 RF, CCP, and 14.3.3 eta negative Uric acid 6.7 ESR and CRP wnl CBC and CMP wnl Xrays 04/03/2023 XR L hand: severe OA of the 1st CMC joint, mild OA of some of the IP joints, moderate OA of the 2nd-4th PIP joints, dystrophic calcifications within the wrist XR R hand: CPPD at bilateral wrists worst over right TFCC, moderate OA of the 1st CMC joint, severe OA at the 3rd PIP joint, moderate in OA in the other IP joints. No erosions Ultrasound 04/10/2023 US right hand/wrist: Grade 2 power doppler in the wrist, radial scaphoid joint, ulnar styloid, and volar wrist. Grade 1 power doppler in the 2nd and 5th MCP joints and 3rd PIP joint. Marked synovial thickening in the wrist. Moderate synovial thickening in the 2nd PIP joint. Cortical defect which may represent erosive changes in the 2nd metacarpal head. An enlarged median nerve at 0.17 cm2 is identified. An additional transverse view of the right knee does not reveal any evidence of a crystal induced arthropathy although this does not necessarily rule this out. No significant joint effusions appreciated on US examination. Assessment & Plan (08/02/2024 2:21 PM CDT): Our workup showed unremarkable serologies, xrays with modearte to severe OA as well as changes c/w CPPD, and an US of her R hand/wrist shows fairly isolated inflammation of the wrist. Overall feels stable since last visit. Will continue diclofenac 75 mg bid and monitor. Labs today as below. Plan for follow up in ~6 months to reassess or sooner as needed. Assessment & Plan (01/27/2024 2:30 PM CDT): Our workup showed unremarkable serologies, xrays with modearte to severe OA as well as changes c/w CPPD, and an US of her R hand/wrist shows fairly isolated inflammation of the wrist. Overall feels stable since last visit. Will continue diclofenac 75 mg bid and monitor. Labs today as below. Plan for follow up in ~6 months to reassess or sooner as needed. Assessment & Plan (07/29/2023 3:54 PM CDT): Our workup showed unremarkable serologies, xrays with modearte to severe OA as well as changes c/w CPPD, and an US of her R hand/wrist shows fairly isolated inflammation of the wrist. Favor that her current pain complaints are 2/2 OA and not CPPD. We have discussed that the goal of no pain is likely unattainable which she understands and states that her current pain level is manageable. Discussed consideration for the addition of Tylenol and/or Voltaren gel. Consider PT, which she declines today. Unlikely to experience greater benefit with a different nsaid, will continue diclofenac 75 mg bid and monitor. Plan for follow up in ~6 months to reassess or sooner as needed. Assessment & Plan (06/17/2023 2:44 PM CDT): Overall there was suspicion some suspicion for gout, CPPD, RA, and PsA based upon her history and exam. Our workup showed unremarkable serologies, xrays with modearte to severe OA as well as changes c/w CPPD, and an US of her R hand/wrist shows fairly isolated inflammation of the wrist. Overall at this time, findings are most c/w CPPD. She noted some benefit with meloxicam 7.5 mg bid, but is hoping to try something else. Discussed that the goal of no pain is likely unattainable in light of her overlap of at least CPPD and OA, but we can try a different NSAID to see if it offers greater benefit. Reviewed risks of NSAIDs including GI upset, PUD, and nephrotoxicity. Will start diclofenac 75 mg once daily, increasing to bid as needed/tolerated. Check labs as below. Plan for follow up in ~6 weeks to reassess or sooner as needed. Assessment & Plan (04/11/2023 3:07 PM CDT): 67yoF presents for evaluation due to joint pain. She notes knee pain within the last 5 months but has had hand pain for ~10 years. She notes benefit with meloxicam 7.5 mg daily, though finds that it doesn't last throughout the day. A clinical dx of gout was given ~12 years ago and her recent xrays also showed chondrocalcinosis raising the question of CPPD. She notes a FH of both RA and PsO/PsA. By exam today she has a few tender joints and suspected synovitis in a few joints in her hands. She also had 3 pits noted on one fingernail. Overall there was suspicion some suspicion for gout, CPPD, RA, and PsA based upon her history and exam. Our workup shows unremarkable serologies, xrays with modearte to severe OA as well as changes c/w CPPD, and an US of her R hand/wrist shows fairly isolated inflammation of the wrist. Overall at this time, findings are most c/w CPPD. Will try increasing meloxicam to 7.5 mg bid. Reviewed risks of NSAIDs including GI upset, PUD, and nephrotoxicity. Will monitor labs including renal function. Plan for follow up in ~2 months to reassess or sooner as needed. Assessment & Plan (03/27/2023 3:19 PM CDT): 67yoF presents for evaluation due to joint pain. She notes knee pain within the last 5 months but has had hand pain for ~10 years. She notes moderate benefit with meloxicam 7.5 mg daily. A clinical dx of gout was given ~12 years ago and her recent xrays also showed chondrocalcinosis raising the question of CPPD. She notes a FH of both RA and PsO/PsA. By exam today she has a few tender joints and suspected synovitis in a few joints in her hands. She also had 3 pits noted on one fingernail. Overall there is suspicion at this time for a crystalline or inflammatory arthritis with consideration for gout, CPPD, RA, and PsA based upon her history and exam. To fully evaluate will check labs and imaging as below with plan for follow up in 2 weeks to review results and discuss treatment options. Social History Tobacco Use Types Packs/Day Years Used Date Smoking Tobacco: Never Assessed Comments Unknown Sex and Gender Information Value Date Recorded Sex Assigned at Not on file Legal Sex Female 10:19 AM CDT Gender Identity Not on file Sexual Orientation Not on file Obstetrics History Last Filed Vital Signs Vital Sign Reading Time Taken Comments Blood Pressure 128/70 08/03/2024 2:10 PM CDT Pulse 90 08/03/2024 2:10 PM CDT Temperature - - Respiratory Rate - - Oxygen Saturation 99% 08/03/2024 2:10 PM CDT Inhaled Oxygen Concentration - - Weight 87.5 kg (192 lb 12.8 oz) 08/03/2024 2:10 PM CDT Height 167.6 cm (5' 6 ) 08/03/2024 2:10 PM CDT Body Mass Index 31.12 08/03/2024 2:10 PM CDT Plan of Treatment Health Maintenance Due Date Last Done Comments Breast Cancer Screening-Mammogram 1955 Colon Cancer Screening-Colonoscopy 1955 Depression Screening 1955 Fall Risk Assessment 1955 Hepatitis C Screening 1955 Osteoporosis Screening-Bone Density Scan 1955 DTaP/Tdap/Td Vaccine (1 - Tdap) 1966 Hepatitis B Screening 1973 Well Visit 65+ 2020 Zoster Vaccine (2 of 2) 01/25/2021 11/30/2020 Pneumococcal vaccine 65+ (2 of 2 - PPSV23) 11/30/2021 11/30/2020 Covid-19 Vaccine (6 - 2023-2 5 season) 2024 08/23/2022, 05/09/2022, 08/23/2021, Additional history exists Influenza Vaccine (#1) 2024 , 08/23/2021, 07/29/2019, Additional history exists Insurance [facility] [place] Care Teams Curing Press Maintainer Relationship Specialty Start Date End Date Christian Perea MD [address] [facility] [address] [place] [address] PCP - General Family Medicine 02/13/23 Brandon Rivera MD [address] [place] [address] Consulting Physician Rheumatology 02/13/23
--- OUTSIDE RECORDS SUMMARY | 2025-01-25 15:44 | XMS_ITS | Referral Summary ---
Author Organization [facility] [address] [facility] Address [address] [place] [id number] Care Team Providers Care Switch Engineer Name Role Phone Christian Perea MD Primary Care Provider Brandon Rivera MD Unavailable [phone] Allergies Active Allergy Reactions Criticality Noted Date [...] 08/03/2024 2:10 PM CDT Plan of Treatment Not on file Insurance [facility] [place] [address] [place] [address] Care Teams Switch Engineer Relationship Specialty Start Date End Date Christian Perea MD [address] [facility] [address] [place] [address] PCP - General Family Medicine 02/13/23 Brandon Rivera MD [address] [place] [address] Consulting Physician Rheumatology 02/13/23
== END 2025-01-25 13:55 | disposition home or self-care (01) ==
PROVIDERS: PCP Family Medicine; Visit Provider Urology
DX: N20.1 Calculus of ureter (principal)
CPT/HCPCS: 74018

== ENCOUNTER 2025-03-23 10:25 | Outpatient (CLI) | payer OTHER, SELFPAY ==
--- OUTSIDE RECORDS SUMMARY | 2025-03-23 10:46 | XMS_ITS | Encounter Summary ---
Author Organization [facility] Address [address] [place] [address] Phone Care Team Providers Care Sanitary Plumber Name Role Phone Christian Perea MD Primary Care Provider Brandon Rivera MD Unavailable [phone] Encounter Details Date Type Department Care Team (Late st Contact Info) Description 02/02/2025 Results Follow-Up [facility] [address] [place] [address] Keely Haider PA [address] [place] [address] Social History Tobacco Use Types Packs/Day Years Used Date Smoking Tobacco: Never Assessed Comments Unknown Sex and Gender Information Value Date Recorded Sex Assigned at Not on file Legal Sex Female 10:19 AM CDT Gender Identity Not on file Sexual Orientation Not on file documented as of this encounter Plan of Treatment Not on file documented as of this encounter Visit Diagnoses Not on filedocumented in this encounter Care Teams Sanitary Plumber Relationship Specialty Start Date End Date Christian Perea MD [address] [facility] [address] [place] [address] PCP - General Family Medicine 02/13/23 Brandon Rivera MD [address] [place] [address] Consulting Physician Rheumatology 02/13/23 documented as of this encounter
--- OUTSIDE RECORDS SUMMARY | 2025-03-23 10:46 | XMS_ITS | Clinical Summary ---
Author Organization [facility] Address [address] [place] [address] Care Team Providers Care Wood Bucker Name Role Phone Christian Perea MD Primary Care Provider [phone] Social History Tobacco Use Types Packs/Day Years [...] 1 - Tdap) 1974 Mammogram Screening 1995 Pneumococcal Vaccine: 50+ Ye ars (1 of 1 - PCV) 2005 Zoster Vaccines (1 of 2) 2005 Dexa Scan (General) 2020 COVID-19 Vaccine ( - 2023-2 5 season) 2024 RSV Immunization or 60+ Years (1 - 1-dose 75+ series) 2030 Meningococcal B Vaccine Aged Out No l onger eligible based on patient's age to complete this topic Meningococcal Vaccine Aged Out No satish ruben eligible based on patient's age to complete this topic RSV Immunizations Under 20 Months Aged Out No longer eligible based on patient's age to complete this topic Care Teams Wood Bucker Relationship Specialty Start Date End Date Christian Perea MD [address] [place] [address] PCP - General 01/30/17
--- OUTSIDE RECORDS SUMMARY | 2025-03-23 10:46 | XMS_ITS | Clinical Summary ---
Author Organization [facility] Address [address] [place] [address] Care Team Providers Care Panel Edge Sealer Name Role Phone Christian Perea MD Primary Care Provider [phone] Allergies Active Allergy Reactions Criticality Noted Date [...] Date Diagnosed Date Iron deficiency anemia 11/19/2017 Family History Medical History Relation Name Comments [...] on file Legal Sex Female 11:42 AM PROGRAM STRATEGIST Gender Identity Not on file Sexual Orientation Not on file Last Filed Vital Signs Vital Sign Reading Time Taken Comments Blood Pressure 140/76 12/19/2023 11:46 AM PROGRAM STRATEGIST Pulse 86 12/19/2023 11:46 AM PROGRAM STRATEGIST Temperature 36.3 C (97.4 F) 12/19/2023 11:46 AM PROGRAM STRATEGIST Respiratory Rate 15 12/19/2023 11:46 AM PROGRAM STRATEGIST Oxygen Saturation 97% 12/19/2023 11:46 AM PROGRAM STRATEGIST Inhaled Oxygen Concentration - - Weight 94.6 kg (208 lb 9.6 oz) 12/19/2023 11:46 AM PROGRAM STRATEGIST Height 172.7 cm (5' 8 ) 07/22/2022 [...] (1 - 1-dose 75+ series) 2030 [facility] [place] [address] [place] [address] [facility] Address: [address] [place] [address] Care Teams Panel Edge Sealer Relationship Specialty Start Date End Date Christian Perea MD [address] [facility] [address] [place] [address] PCP - General Family Practice 11/19/17
--- OUTSIDE RECORDS SUMMARY | 2025-03-23 10:46 | XMS_ITS | Referral Summary ---
Author Organization [facility] [address] [facility] Address [address] [place] [address] Care Team Providers Care Outside Machinist Apprentice Name Role Phone Christian Perea MD Primary Care Provider Brandon Rivera MD Unavailable [phone] Encounters Date Type Department Care Team Description 02/02/2025 Results Follow-Up [facility] [address] [place] [phone] Keely Haider PA 02/01/2025 2:30 PM CDT Office Visit [facility] [address] [place] [address] Keely Haider PA Calcium pyrophosphate deposition disease (CPPD) (Primary Dx); Primary osteoarthritis involving multiple joints from Last 3 Months Allergies Active Allergy Reactions Criticality Noted Date [...] by mouth daily 90 tablet 1 10/26/2024 Active Active Problems Problem Noted Date Diagnosed Date Primary osteoarthritis involving multiple joints 07/29/2023 Assessment & Plan (02/01/2025 3:58 PM CDT): Certainly suspect that OA (1st CMC and knees in particular) contributes to the bulk of her pain. Discussed consideration for ortho evaluation, she states that she would not pursue surgery so does not feel this is warranted. Will continue as above. Assessment & Plan (08/02/2024 2:21 PM CDT): [...] appreciated on US examination. Assessment & Plan (02/01/2025 3:54 PM CDT): Our workup showed unremarkable serologies, xrays with modearte to severe OA as well as changes c/w CPPD, and an US of her R hand/wrist shows fairly isolated inflammation of the wrist. While her joint pain responded very well to diclofenac, unfortunately this had to be stopped due to renal insufficiency. She is now on colchicine 0.6 mg daily which she can say did offer some benefit. She is using Tylenol very sparingly. Recommend continue colchicine 0.6 mg once daily and encourage use of Tylenol up to 3 g/day. Labs today as below. Plan for follow up in ~6 months to reassess or sooner as needed. Assessment & Plan (08/02/2024 2:21 PM CDT): [...] Sign Reading Time Taken Comments Blood Pressure 134/60 02/01/2025 2:30 PM CDT Pulse 87 02/01/2025 2:30 PM CDT Temperature - - Respiratory Rate - - Oxygen Saturation 97% 02/01/2025 2:30 PM CDT Inhaled Oxygen Concentration - - Weight 89.4 kg (197 lb) 02/01/2025 2:30 PM CDT Height 167.6 cm (5' 6 ) 02/01/2025 2:30 PM CDT Body Mass Index 31.8 02/01/2025 2:30 PM CDT Plan of Treatment Not on file Procedures Procedure Name Priority Date/Time Associated Diagnosis Comments COMPREHENSIVE METABOLIC PANEL Routine 02/01/2025 3:24 PM CDT Calcium pyrophosphate deposition disease (CPPD) Primary osteoarthritis involving multiple joints CBC WITH AUTO DIFFERENTIAL Routine 02/01/2025 3:24 PM CDT Calcium pyrophosphate deposition disease (CPPD) Primary osteoarthritis involving multiple joints from Last 3 Months Results * CBC with auto differential (02/01/2025 3:24 PM CDT) WBC 5.8 3.8 - 10.8 Thousand/u L [facility] RBC, POC 4.34 3.80 - 5.10 Million/uL [facility] Hgb 13.0 11.7 - 15.5 g/dL [facility] Hct 39.8 35.0 - 45.0 % [facility] MCV 91.7 80.0 - 100.0 fL [facility] MCH 30.0 27.0 - 33.0 pg [facility] MCHC 32.7 32.0 - 36.0 g/dL [facility] Comment: For adults, a slight decrease in the calculated MCHC value (in the range of 30 to 32 g/dL) is most likely not clinically significant; however, it should be interpreted with caution in correlation with other red cell parameters and the patient's clinical condition. Rdw 12.9 11.0 - 15.0 % [facility] Platelets 220 140 - 400 Thousand/u L [facility] MPV 12.4 7.5 - 12.5 fL [facility] Neutrophils, abs 3,990 1,500 - 7,800 cells/uL [facility] Lymphocytes, abs 1,322 850 - 3,900 cells/uL [facility] Monocyte abs 278 200 - 950 cells/uL [facility] Eosinophils, abs 168 15 - 500 cells/uL [facility] Basophils, abs 41 0 - 200 cells/uL [facility] Neutrophils 68.8 % [facility] Lymphocyte pct 22.8 % [facility] Monocytes 4.8 % [facility] Eosinophils 2.9 % [facility] Basophils 0.7 % [facility] Blood 02/01/2025 3:24 PM CDT 02/01/2025 3:25 PM CDT us Keely ISABEL LAB BLOOD ORDERABLES Poppy l Result [facility] [address] [address] [phone] * (ABNORMAL) Comprehensive metabolic panel (02/01/2025 3:24 PM CDT) Glucose 117(H) 65 - 99 mg/dL [facility] Comment: Fasting reference interval For someone without known diabetes, a glucose value between 100 and 125 mg/dL is consistent with prediabetes and should be confirmed with a follow-up test. BUN 25 7 - 25 mg/dL [facility] Creatinine 1.05 0.50 - 1.05 mg/dL [facility] eGFR 58(L) > OR = 60 mL/min/1.7 3m2 [facility] BUN/creat ratio SEE NOTE: 6 - 22 (calc) [facility] Comment: Not Reported: BUN and Creatinine are within reference range. Sodium 141 135 - 146 mmol/L [facility] Potassium, pl 4.2 3.5 - 5.3 mmol/L [facility] Chloride 107 98 - 110 mmol/L [facility] CO2 25 20 - 32 mmol/L [facility] Calcium 10.3 8.6 - 10.4 mg/dL [facility] Protein, sr 6.4 6.1 - 8.1 g/dL [facility] Albumin 4.4 3.6 - 5.1 g/dL [facility] GLOBULIN 2.0 1.9 - 3.7 g/dL (calc) [facility] Alb/glob ratio 2.2 1.0 - 2.5 (calc) [facility] Bilirubin, total 0.8 0.2 - 1.2 mg/dL [facility] Alk phos 90 37 - 153 U/L [facility] AST 12 10 - 35 U/L [facility] ALT (SGPT) 11 6 - 29 U/L [facility] Blood 02/01/2025 3:24 PM CDT 02/01/2025 3:25 PM CDT Keely ISABEL LAB BLOOD ORDERABLES Poppy l Result [facility] [address] [address] [phone] from Last 3 Months Insurance [facility] Care Teams Outside Machinist Apprentice Relationship Specialty Start Date End Date Christian Perea MD [address] [address] [place] [address] PCP - General Family Medicine 02/13/23 Brandon Rivera MD [address] [place] [address] Consulting Physician Rheumatology 02/13/23
--- OUTSIDE RECORDS SUMMARY | 2025-03-23 10:46 | XMS_ITS | Clinical Summary ---
Author Organization [facility] [address] [facility] Address [address] [place] [phone] Care Team Providers Care Personnel Adviser Name Role Phone Christian Perea MD Primary Care Provider Brandon Rivera MD Unavailable [phone] Allergies Active Allergy Reactions Criticality Noted Date [...] to review results and discuss treatment options. Encounters Date Type Department Care Team Description 02/02/2025 Results Follow-Up [facility] [address] [place] [phone] Keely Haider PA 02/01/2025 2:30 PM CDT Office Visit [facility] [address] [place] [phone] Keely Haider PA Calcium pyrophosphate deposition disease (CPPD) (Primary Dx); Primary osteoarthritis involving multiple joints from Last 3 Months Social History Tobacco Use Types Packs/Day Years [...] 02/01/2025 2:30 PM CDT Plan of Treatment Health Maintenance [...] - PPSV23) 11/30/2021 11/30/2020 Covid-19 Vaccine (6 2023-2 5 season) 2024 08/23/2022, 05/09/2022, 08/23/2021, Additional history exists Influenza Vaccine (#1) 2024 , 08/23/2021, 07/29/2019, Additional history exists Procedures Procedure Name Priority Date/Time Associated Diagnosis [...] BLOOD ORDERABLES Poppy l Result [facility] [address] [place] [address] * (ABNORMAL) Comprehensive metabolic panel (02/01/2025 3:24 PM CDT) [facility] Glucose 117(H) 65 - 99 mg/dL [facility] [...] BLOOD ORDERABLES Poppy l Result [facility] [address] [facility] [place] [address] from Last 3 Months Insurance [facility] Care Teams Personnel Adviser Relationship Specialty Start Date End Date Christian Perea MD [address] [facility] [address] [place] [address] PCP - General Family Medicine 02/13/23 Brandon Rivera MD [address] [place] [address] Consulting Physician Rheumatology 02/13/23
[2025-03-23 10:53] LABS: Alanine Aminotransferase 18 U/L (6-35); Albumin Level 4.4 g/dL (3.5-5.1); Alkaline Phosphatase 91 U/L (38-126); Anion Gap 12 mmol/L (4-12); Aspartate Amino Transferase 22 U/L (14-36); Bilirubin,Total 1.1 mg/dL (0.2-1.3); Blood Urea Nitrogen 30 mg/dL (7-17); Calcium 10.4 mg/dL (8.4-10.2); Carbon Dioxide 24 mmol/L (22-30); Chloride 106 mmol/L (98-107); Estimated Glomerular Filt Rate 55; Glucose 121 mg/dL (65-110); Potassium 4.4 mmol/L (3.4-5.0); Sodium 142 mmol/L (137-145)
[2025-03-23 11:36] LABS: Hemoglobin A1C 6.2 % (<5.7)
== END 2025-03-23 10:26 | disposition home or self-care (01) ==
PROVIDERS: PCP Family Medicine; Visit Provider Physician Assistant
DX: E11.22 Type 2 diabetes mellitus with diabetic chronic kidney disease (principal); Z79.4 Long term (current) use of insulin; I12.9 Hypertensive chronic kidney disease with stage 1 through stage 4 chronic kidney disease, or unspecified chronic kidney disease; N18.30 Chronic kidney disease, stage 3 unspecified
CPT/HCPCS: 36415; 80053; 83036

== ENCOUNTER 2025-07-20 11:32 | Outpatient (CLI) | payer OTHER, SELFPAY ==
[2025-07-20 12:09] LABS: Alanine Aminotransferase 15 U/L (6-35); Albumin Level 4.1 g/dL (3.5-5.1); Alkaline Phosphatase 111 U/L (38-126); Anion Gap 10 mmol/L (4-12); Aspartate Amino Transferase 19 U/L (14-36); Bilirubin,Total 0.9 mg/dL (0.2-1.3); Blood Urea Nitrogen 32 mg/dL (7-17); Calcium 10.5 mg/dL (8.4-10.2); Carbon Dioxide 25 mmol/L (22-30); Chloride 102 mmol/L (98-107); Estimated Glomerular Filt Rate 49; Glucose 144 mg/dL (65-110); Potassium 4.6 mmol/L (3.4-5.0); Sodium 137 mmol/L (137-145); Total Protein 6.8 g/dL (6.3-8.2)
[2025-07-20 12:11] LABS: Hemoglobin A1C 6.5 % (<5.7)
== END 2025-07-20 11:33 | disposition home or self-care (01) ==
PROVIDERS: PCP Family Medicine; Visit Provider Physician Assistant
DX: E11.22 Type 2 diabetes mellitus with diabetic chronic kidney disease (principal); Z79.4 Long term (current) use of insulin; E11.9 Type 2 diabetes mellitus without complications; I12.9 Hypertensive chronic kidney disease with stage 1 through stage 4 chronic kidney disease, or unspecified chronic kidney disease; N18.30 Chronic kidney disease, stage 3 unspecified
CPT/HCPCS: 36415; 80053; 83036

== ENCOUNTER 2025-07-26 14:31 | Outpatient (CLI) | payer OTHER, SELFPAY ==
[2025-07-26 15:07] LABS: Hematocrit 41.6 % (37.0-47.0); Hemoglobin 13.5 g/dL (12.0-15.0); Immature Granulocyte Percent A 0.2 % (0-0.5); Lymphocytes Absolute Auto 1.42 K/mm3 (0.9-3.2); Mean Corpuscular HGB Conc 32.5 g/dl (32-36); Mean Corpuscular Hemoglobin 29.9 pg (26-34); Mean Corpuscular Volume 92.2 fl (80-100); Nucleated Red Blood Cells Absolute Auto 0.000 K/mm3 (0.0-0.012); Nucleated Red Blood Cells Perc 0.0 % (0.0-0.2); Platelet Count Result 264 k/mm3 (150-375); Red Blood Count 4.51 M/mm3 (4.2-5.4); White Blood Count 8.6 K/mm3 (4.5-10.0)
[2025-07-26 15:19] LABS: Alanine Aminotransferase 16 U/L (6-35); Albumin Level 4.5 g/dL (3.5-5.1); Alkaline Phosphatase 102 U/L (38-126); Amylase 56 U/L (30-110); Anion Gap 10 mmol/L (4-12); Aspartate Amino Transferase 22 U/L (14-36); Bilirubin,Total 1.2 mg/dL (0.2-1.3); Blood Urea Nitrogen 29 mg/dL (7-17); Calcium 10.7 mg/dL (8.4-10.2); Carbon Dioxide 22 mmol/L (22-30); Chloride 106 mmol/L (98-107); Estimated Glomerular Filt Rate 42; Glucose 146 mg/dL (65-110); Lipase 72 U/L (23-300); Potassium 5.1 mmol/L (3.4-5.0); Sodium 138 mmol/L (137-145); Total Protein 7.5 g/dL (6.3-8.2)
[2025-07-26 15:24] LABS: Add Urine Microscopic? YES; Appearance Urine Cloudy (Clear); Glucose Urine UA Negative (Negative); Leukocyte Esterase Ur 3+ LEU/UL (Negative); Need Manual Microscopic Reviewed; Nitrate Urine Negative (Negative); Specific Grav Ur 1.023 (1.001-1.035)
[2025-07-26 15:31] LABS: Parathyroid Intact 58.2 pg/mL (14.5-75.2)
--- OUTSIDE RECORDS SUMMARY | 2025-07-26 16:07 | XMS_ITS | Clinical Summary ---
Author Organization [facility] Address [address] [place] [address] Care Team Providers Care Intermediate Designer Name Role Phone Christian Perea MD Primary Care Provider [phone] Allergies Active Allergy Reactions Criticality Noted Date [...] on file Legal Sex Female 11:42 AM REAL ESTATE PORTFOLIO MANAGER Gender Identity Not on file Sexual Orientation Not on file Last Filed Vital Signs Vital Sign Reading Time Taken Comments Blood Pressure 140/76 12/19/2023 11:46 AM REAL ESTATE PORTFOLIO MANAGER Pulse 86 12/19/2023 11:46 AM REAL ESTATE PORTFOLIO MANAGER Temperature 36.3 C (97.4 F) 12/19/2023 11:46 AM REAL ESTATE PORTFOLIO MANAGER Respiratory Rate 15 12/19/2023 11:46 AM REAL ESTATE PORTFOLIO MANAGER Oxygen Saturation 97% 12/19/2023 11:46 AM REAL ESTATE PORTFOLIO MANAGER Inhaled Oxygen Concentration - - Weight 94.6 kg (208 lb 9.6 oz) 12/19/2023 11:46 AM REAL ESTATE PORTFOLIO MANAGER Height 172.7 cm (5' 8) 07/22/2022 2:50 PM CDT Body Mass Index [...] 2005 OSTEOPOROSIS SCREENING 2020 INFLUENZA VACCINE (#1) 2025 RSV VACCINE (60+ or ) (1 - 1-dose 75+ series) 2030 Insurance [facility] [place] [address] [address] [employer] Care Teams Intermediate Designer Relationship Specialty Start Date End Date Christian Peera MD [address] [facility] [address] [place] [address] PCP - General Family Practice 11/19/17
--- OUTSIDE RECORDS SUMMARY | 2025-07-26 16:08 | XMS_ITS | Clinical Summary ---
Author Organization [facility] Address [address] [place] [address] Care Team Providers Care River Transportation Worker Name Role Phone Christian Perea MD Primary Care Provider [phone] Social History Tobacco Use Types Packs/Day Years [...] 8:18 AM CDT Height 167.6 cm (5' 6) 04/29/2016 8:18 AM CDT Body Mass Index [...] COVID-19 Vaccine ( - 2023-2 5 season) 2025 RSV Immunization or 60+ Years (1 - [...] age to complete this topic Care Teams River Transportation Worker Relationship Specialty Start Date End Date Christian Perea MD [address] [place] [address] PCP - General 01/30/17
--- OUTSIDE RECORDS SUMMARY | 2025-07-26 16:08 | XMS_ITS | Clinical Summary ---
Author Organization [facility] [address] [facility] Address [address] [place] [address] Care Team Providers Care Shank Breaker Name Role Phone Christian Perea MD Primary Care Provider Brandon Rivera MD Unavailable [phone] Allergies Active Allergy Reactions Criticality Noted Date [...] Assessment & Plan (04/11/2023 3:07 PM CDT): 67yoJaiden presents for evaluation due to joint pain. [...] 2:30 PM CDT Height 167.6 cm (5' 6) 02/01/2025 2:30 PM CDT Body Mass Index [...] Pneumococcal vaccine 65+ (2 of 2 - PCV20 or PCV21) 11/30/2021 11/30/2020 Covid-19 Vaccine (6 - 2024-2 6 season) 2025 08/23/2022, 05/09/2022, 08/23/2021, Additional history exists Influenza Vaccine (#1) 2025 , 08/23/2021, 07/29/2019, Additional history exists Insurance [facility] Care Teams Shank Breaker Relationship Specialty Start Date End Date Christian Perea MD [address] [facility] [address] [place] [address] PCP - General Family Medicine 02/13/23 Brandon Rivera MD [address] [place] [address] Consulting Physician Rheumatology 02/13/23
[2025-07-27 16:08] LABS: Calcium, Ionized 5.7 mg/dL (4.5-5.6)
== END 2025-07-26 14:32 | disposition home or self-care (01) ==
PROVIDERS: PCP Family Medicine; Visit Provider Physician Assistant
DX: E11.22 Type 2 diabetes mellitus with diabetic chronic kidney disease (principal); N18.9 Chronic kidney disease, unspecified; E83.52 Hypercalcemia; R19.7 Diarrhea, unspecified; R11.10 Vomiting, unspecified; R30.0 Dysuria; R10.9 Unspecified abdominal pain; Z87.442 Personal history of urinary calculi
CPT/HCPCS: 36415; 80053; 81001; 82150; 82330; 83690; 83970; 85025

== ENCOUNTER 2025-10-20 13:41 | Outpatient (CLI) | payer OTHER, SELFPAY ==
--- NOTE | ~2025-10-20 | DEXA_ITS ---
Bone Density Report Name: FILIBERTO BLACK Age: 69 Sex: Female Ethnicity: White Date of : 1955 Indication: osteopenia; parental hip fracture; height loss; Referring Provider: ANA MARIA GUERRA Study: Bone densitometry was performed. Exam Date: October 20, 2025 Accession number: [id number] Bone Density: Region BMD T-score Z-score Classification AP Spine(L1-L4) 0.896 -1.4 0.7 Osteopenia Femoral Neck (Left) 0.615 -2.1 -0.3 Osteopenia Total Hip (Left) 0.613 -2.7 -1.2 Osteoporosis Femoral Neck (Right) 0.585 -2.4 -0.6 Osteopenia Total Hip (Right) 0.604 -2.8 -1.3 Osteoporosis Total Hip Mean 0.608 -2.8 -1.3 Osteoporosis World Health Organization criteria for BMD impression classify patients as: Normal (T-score at or above -1.0), Osteopenia (T-score between -1.0 and -2.5), or Osteoporosis (T-score at or below -2.5). 10-year Fracture Risk: FRAX not reported because: Some T-score for Spine Total or Hip Total or Femoral Neck at or below -2.5 Previous Exams: -- Region Exam Age BMD T-score BMD Change BMD Change Date g/cm2 vs Baseline vs Previous -- Total Hip(Left) 10/20/2025 69 0.613 -2.7 -17.0%# -17.0%# 11/16/2021 66 0.739 -1.7 Total Hip(Right) 10/20/2025 69 0.604 -2.8 -19.5%# -19.5%# 11/16/2021 66 0.750 -1.6 -- *Denotes significance at 95% confidence level, LSC for Total Hip = 0.027 g/cm2 # Denotes dissimilar scan types or analysis methods Clinical Information Provided by Patient: Parent has had a hip fracture Has used the following medications: Vitamin D Patient maximum height was 67 Menopause Age: 47 No regular weight bearing exercise Drinks caffeinated beverages Onset of menses at age 11 Number of children 3 Impression: The patient has osteoporosis, based on the Right Total Hip T-score. The patient has risk factors, including: parental hip fracture. Unable to evaluate interval change due to the use of different scan modes. Discussion: INCREASED RISK OF FRACTURE. BONE DENSITY IS UNDESIRABLY LOW AT ONE OR MORE SKELETAL SITES, CONSISTENT WITH POSTMENOPAUSAL OSTEOPOROSIS. This patient's lowest T-score meets the World Health Organization's (WHO) criteria for osteoporosis at one or more sites (T-score -2.5 or below). In untreated patients, the risk of osteoporotic fracture increases approximately two-fold for each 1.0 SD decrease in T-score. Low bone density is not the only risk factor for fracture; also consider factors such as patient's age, frailty or poor health, risk of falling, risk of injury, previous osteoporotic fracture, family history of osteoporosis, cigarette smoking, low body weight, etc. Not everyone with low bone mineral density has osteoporosis; osteomalacia and other metabolic bone disorders should also be considered. Patients who have osteoporosis should be evaluated for specific diseases and conditions (secondary causes) that may cause or contribute to bone loss. The [place] Association of Clinical Endocrinologists (AACE) and National Osteoporosis Foundation (NOF) recommend pharmacologic intervention for all postmenopausal women whose T-score is in this range. The patient should follow a healthful lifestyle (good nutrition with adequate calcium and vitamin D, and appropriate weight-bearing exercise). Follow-Up: Consider a repeat BMD and Vertebral Fracture Assessment (VFA) exam in 2 years or sooner if medically necessary, to reassess this patient's status. Reported by: NEAL on 10/20/2025 2:09:00 PM. Reviewed, dictated and finalized at location A.
== END 2025-10-20 13:42 | disposition home or self-care (01) ==
LOC: MICIMG 13:42
PROVIDERS: PCP Family Medicine; Visit Provider Physician Assistant
DX: M85.89 Other specified disorders of bone density and structure, multiple sites (principal); M81.0 Age-related osteoporosis without current pathological fracture; Z78.0 Asymptomatic menopausal state
CPT/HCPCS: 77080

== ENCOUNTER 2025-11-08 14:00 | Outpatient (CLI) | payer OTHER, SELFPAY ==
--- NOTE | ~2025-11-08 | CT_ITS ---
EXAMINATION: CT abdomen pelvis wo con DATE: 11/08/2025 14:26 INDICATION: Left ureteral stone. TECHNIQUE: Computed tomography (CT) of the abdomen and pelvis was performed without intravenous contrast. Automated exposure control and iterative reconstruction technique were employed. The dose-length product was 674.35 mGy-cm. COMPARISON: CT abdomen and pelvis 12/01/2024 FINDINGS: The visualized portions of lung bases demonstrate mild atelectasis. No pleural effusion. The heart size is normal. No pericardial effusion. The liver is normal. There are changes of cholecystectomy. The spleen, pancreas, adrenal glands, and kidneys are normal. There is no urolithiasis. There are no dilated loops of bowel. The appendix is not visualized. There are no pathologically enlarged lymph nodes. There is no free intraperitoneal fluid. There are benign bone islands in left ilium. There is severe thoracic and lumbar spondylosis. IMPRESSION: 1. No urolithiasis. Reviewed, dictated and finalized at location E. NE EQUIPMENT RESEARCH ENGINEER IMPRESSION: 1. No urolithiasis.
--- NOTE | ~2025-11-08 | XR_ITS ---
XR abdomen/kub 1V INDICATION: left ureteral stone REFERENCE: 01/25/2025 FINDINGS: A supine view of the abdomen is submitted. The bowel gas pattern is nonobstructive. Moderate stool throughout the colon. No free air is identified. Osseous structures are intact. There is no nephroureteral lithiasis seen. IMPRESSION: Normal KUB. Reviewed, dictated and finalized at location S. E SALES DELIVERY DRIVERS SUPERVISOR IMPRESSION: Normal KUB.
--- OUTSIDE RECORDS SUMMARY | 2025-11-08 14:21 | XMS_ITS | Clinical Summary ---
Author Organization [facility] Address [address] [place] [address] Care Team Providers Care Terrazzo Polisher Helper Name Role Phone Christian Perea MD Primary Care Provider [phone] Social History Tobacco Use Types Packs/Day Years [...] 1974 Mammogram Screening 1995 Pneumococcal Vaccine: 50+ Years (1 of 1 - PCV) 2005 Zoster Vaccines (1 of 2) 2005 Dexa Scan (General) 2020 COVID-19 Vaccine (1 - 2024-2 6 season) 2025 Influenza Adult (#1) 2025 08/23/2015, 08/31/2014 RSV Immunization or 60+ Years (1 - 1-dose 75+ series) 2030 Hepatitis A Vaccines Aged Out No long er eligible based on patient's age to complete this topic Meningococcal B Vaccine Aged Out No l onger eligible based on patient's age to complete this topic Meningococcal Vaccine Aged Out No satish ruben eligible based on patient's age to complete this topic RSV Immunizations Under 20 Months Aged Out No longer eligible b ased on patient's age to complete this topic Care Teams Terrazzo Polisher Helper Relationship Specialty Start Date End Date Christian Perea MD [address] [place] [address] PCP - General 01/30/17
--- OUTSIDE RECORDS SUMMARY | 2025-11-08 14:21 | XMS_ITS | Clinical Summary ---
Author Organization [facility] Address [address] [place] [address] Care Team Providers Care Election Judge Name Role Phone Christian Perea MD Primary Care Provider [phone] Allergies Active Allergy Reactions Criticality Noted Date [...] Delayed Release(E.C.) 9 Active flu vacc qs , 6 mos up, (AFLURIA QUAD ,6MO UP, [...] on file Legal Sex Female 11:42 AM CAPTAIN WAITER Gender Identity Not on file Sexual Orientation Not on file Last Filed Vital Signs Vital Sign Reading Time Taken Comments Blood Pressure 140/76 12/19/2023 11:46 AM CAPTAIN WAITER Pulse 86 12/19/2023 11:46 AM CAPTAIN WAITER Temperature 36.3 C (97.4 F) 12/19/2023 11:46 AM CAPTAIN WAITER Respiratory Rate 15 12/19/2023 11:46 AM CAPTAIN WAITER Oxygen Saturation 97% 12/19/2023 11:46 AM CAPTAIN WAITER Inhaled Oxygen Concentration - - Weight 94.6 kg (208 lb 9.6 oz) 12/19/2023 11:46 AM CAPTAIN WAITER Height 172.7 cm (5' 8) 07/22/2022 2:50 [...] (1 - 1-dose 75+ series) 2030 Insurance [facility] Address: [address] [place] [address] [facility] Care Teams Election Judge Relationship Specialty Start Date End Date Christian Perea MD [address] [facility] [address] [place] [address] PCP - General Family Practice 11/19/17
--- OUTSIDE RECORDS SUMMARY | 2025-11-08 14:21 | XMS_ITS | Clinical Summary ---
Author Organization [facility] [address] [facility] Address [address] [place] [phone] Care Team Providers Care Field Hand Name Role Phone Christian Perea MD Primary Care Provider Brandon Rivera MD Unavailable [phone] Allergies Active Allergy Reactions Criticality Noted Date Comments Ciprofloxacin Hives High 11/19/2017 Penicillins Hives High 11/19/2017 Allergic to all cillin Medications hydroCHLOROthiaz brayan 12.5 mg tablet Take 1 tablet (12.5 mg total) by mouth daily 07/16/2024 Active colchicine (COLCRYS) 0.6 mg tablet Take 1 tablet (0.6 mg total) by mouth daily 90 tablet 1 08/16/2025 Active Active Problems Problem Noted Date Diagnosed Date Primary osteoarthritis involving multiple joints 07/29/2023 Assessment & Plan (08/16/2025 12:12 PM CDT): Certainly suspect that OA (1st CMC and knees in particular) contributes to the bulk of her pain. Discussed consideration for ortho evaluation, she states that she would not pursue surgery so does not feel this is warranted. Will continue as above. Assessment & Plan (02/01/2025 3:58 PM CDT): [...] appreciated on US examination. Assessment & Plan (08/16/2025 2:38 PM CDT): Our workup showed unremarkable serologies, xrays with modearte to severe OA as well as changes c/w CPPD, and an US of her R hand/wrist shows fairly isolated inflammation of the wrist. While her joint pain responded very well to diclofenac, unfortunately this had to be stopped due to renal insufficiency. At last visit was taking colchicine 0.6 mg daily with some benefit, has since run out and she forgot about this prescription; she would like to try resuming colchicine 0.6 mg daily now and monitor response. Can continue Tylenol 1300 mg bid prn. Labs today as below. Plan for follow up in ~6 months to reassess or sooner as needed. Assessment & Plan (02/01/2025 3:54 PM CDT): [...] Encounters Date Type Department Care Team Description 08/17/2025 Results Follow-Up [facility] [address] [place] [phone] Keely Haider PA CBC with auto differential, Comprehensive metabolic panel 08/16/2025 2:15 PM CDT Office Visit [facility] [address] [place] [phone] Keely Haider PA Calcium pyrophosphate deposition [...] Sign Reading Time Taken Comments Blood Pressure 130/70 08/16/2025 2:06 PM CDT Pulse 86 08/16/2025 2:06 PM CDT Temperature - - Respiratory Rate - - Oxygen Saturation 93% 08/16/2025 2:06 PM CDT Inhaled Oxygen Concentration - - Weight 79.8 kg (176 lb) 08/16/2025 2:06 PM CDT Height 167.6 cm (5' 6) 08/16/2025 2:06 PM CDT Body Mass Index 28.41 08/16/2025 2:06 PM CDT Plan of Treatment Health Maintenance [...] 2025 , 08/23/2021, 07/29/2019, Additional history exists Procedures Procedure Name Priority Date/Time Associated Diagnosis Comments COMPREHENSIVE METABOLIC PANEL Routine 08/16/2025 2:36 PM CDT Calcium pyrophosphate deposition disease (CPPD) Primary osteoarthritis involving multiple joints CBC WITH AUTO DIFFERENTIAL Routine 08/16/2025 2:36 PM CDT Calcium pyrophosphate deposition disease (CPPD) Primary osteoarthritis involving multiple joints from Last 3 Months Results * CBC with auto differential (08/16/2025 2:36 PM CDT) WBC 5.9 3.8 - 10.8 Thousand/u L [facility] RBC, POC 4.24 3.80 - 5.10 Million/uL [facility] Hgb 13.0 11.7 - 15.5 g/dL [facility] Hct 39.7 35.0 - 45.0 % [facility] MCV 93.6 80.0 - 100.0 fL [facility] MCH 30.7 27.0 - 33.0 pg [facility] MCHC 32.7 32.0 - 36.0 g/dL [facility] Comment: For adults, a slight decrease in the calculated MCHC value (in the range of 30 to 32 g/dL) is most likely not clinically significant; however, it should be interpreted with caution in correlation with other red cell parameters and the patient's clinical condition. Rdw 12.3 11.0 - 15.0 % [facility] Platelets 220 140 - 400 Thousand/u L [facility] MPV 11.6 7.5 - 12.5 fL [facility] Neutrophils, abs 3,788 1,500 - 7,800 cells/uL [facility] Lymphocytes, abs 1,398 850 - 3,900 cells/uL [facility] Monocyte abs 271 200 - 950 cells/uL [facility] Eosinophils, abs 389 15 - 500 cells/uL [facility] Basophils, abs 53 0 - 200 cells/uL [facility] Neutrophils 64.2 % [facility] Lymphocyte pct 23.7 % [facility] Monocytes 4.6 % [facility] Eosinophils 6.6 % [facility] Basophils 0.9 % [facility] Blood 08/16/2025 2:36 PM CDT 08/16/2025 2:37 PM CDT us Keely ISABEL LAB BLOOD ORDERABLES Poppy l Result [facility] [address] [phone] * (ABNORMAL) Comprehensive metabolic panel (08/16/2025 2:36 PM CDT) Glucose 206(H) 65 - 99 mg/dL [facility] Comment: Fasting reference interval For someone without known diabetes, a glucose value >125 mg/dL indicates that they may have diabetes and this should be confirmed with a follow-up test. BUN 28(H) 7 - 25 mg/dL [facility] Creatinine 1.22(H) 0.50 - 1.05 mg/dL [facility] eGFR 48(L) > OR = 60 mL/min/1.7 3m2 [facility] BUN/creat ratio 23(H) 6 - 22 (calc) [facility] Sodium 138 135 - 146 mmol/L [facility] Potassium, pl 4.4 3.5 - 5.3 mmol/L [facility] Chloride 105 98 - 110 mmol/L [facility] CO2 26 20 - 32 mmol/L [facility] Calcium 10.3 8.6 - 10.4 mg/dL [facility] Protein, sr 6.5 6.1 - 8.1 g/dL [facility] Albumin 4.4 3.6 - 5.1 g/dL [facility] GLOBULIN 2.1 1.9 - 3.7 g/dL (calc) [facility] Alb/glob ratio 2.1 1.0 - 2.5 (calc) [facility] Bilirubin, total 0.9 0.2 - 1.2 mg/dL [facility] Alk phos 84 37 - 153 U/L [facility] AST 15 10 - 35 U/L [facility] ALT (SGPT) 12 6 - 29 U/L [facility] Blood 08/16/2025 2:36 PM CDT 08/16/2025 2:37 PM CDT Keely ISABEL LAB BLOOD ORDERABLES Poppy darby Result [facility] [address] [address] [phone] from Last 3 Months Insurance [facility] Care Teams Field Hand Relationship Specialty Start Date End Date Christian Perea MD [address] [facility] [address] [place] [address] PCP - General Family Medicine 02/13/23 Brandon Rivera MD [address] [place] [address] Consulting Physician Rheumatology 02/13/23
== END 2025-11-08 14:01 | disposition home or self-care (01) ==
PROVIDERS: PCP Family Medicine; Visit Provider Urology
DX: N20.1 Calculus of ureter (principal)
CPT/HCPCS: 74018; 74176